=== PATIENT | male | born 1935 | race Caucasian/White ===

== ENCOUNTER 2016-06-25 | Outpatient (CLI) | payer MEDICARE, OTHER | END 2016-06-25 09:22 | disposition short-term general hospital (02) | DX: R07.9 Chest pain, unspecified (principal) | CPT/HCPCS: A0425; A0427 ==

== ENCOUNTER 2016-12-07 22:45 | Outpatient (CLI) | payer MEDICARE, OTHER | END 2016-12-07 22:46 | disposition critical access hospital (66) | LOC: EMS 22:45 | PROVIDERS: ATTEND Surgery | DX: R10.9 Unspecified abdominal pain (principal); Z79.01 Long term (current) use of anticoagulants; W18.39XA Other fall on same level, initial encounter | CPT/HCPCS: A0425; A0429 ==

== ENCOUNTER 2016-12-07 22:55 | Emergency (ER) | payer MEDICARE, OTHER ==
[2016-12-07] MEDS ORDERED: ONDANSETRON 4 MG/2 ML VIAL IVP STA (23:48)
[2016-12-07] MEDS ORDERED: HYDROmorphone 1 MG/ML SYRINGE IVP STA (23:48)
[2016-12-07] MEDS ORDERED: ONDANSETRON 4 MG/2 ML VIAL ONE ×2 (23:52→23:58)
[2016-12-07] MEDS ORDERED: HYDROmorphone 1 MG/ML SYRINGE ONE ×2 (23:52→23:58)
[2016-12-08 00:12] LABS: BASOPHILS # (AUTO) 0.1 10^3/uL (0.0-0.1); BASOPHILS % (AUTO) 0.8 %; EOSINOPHILS # (AUTO) 0.3 10^3/uL (0.0-0.7); EOSINOPHILS % (AUTO) 3.8 %; HCT - HEMATOCRIT 38.7 % (42.0-52.0); HGB - HEMOGLOBIN 12.8 g/dL (14.0-18.0); LYMPHOCYTES # (AUTO) 2.1 10^3/uL (1.5-3.5); LYMPHOCYTES % (AUTO) 25.7 %; MEAN CORPUSCULAR HEMOGLOBIN 29.4 pg (27.0-31.0); MEAN CORPUSCULAR VOLUME 89.1 fL (80.0-94.0); MEAN PLATELET VOLUME 9.4 fL (7.4-11.4); MONOCYTES # (AUTO) 0.9 10^3/uL (0.0-1.0); MONOCYTES % (AUTO) 11.5 %; NEUTROPHILS # (AUTO) 4.8 10^3/uL (1.5-6.6); NEUTROPHILS % (AUTO) 58.2 %; NUCLEATED RED BLOOD CELLS AUTO 0.1 /100WBC; RED BLOOD COUNT 4.34 10^6/uL (4.70-6.10); RED CELL DISTRIBUTION WIDTH 15.2 % (12.0-15.0); UNCORRECTED WHITE BLOOD COUNT 8.3 x10^3/uL; WHITE BLOOD COUNT 8.3 x10^3/uL (4.8-10.8)
[2016-12-08 00:21] LABS: INR 2.7 (0.8-1.2); PT - PROTHROMBIN TIME 30.3 secs (9.9-12.6)
[2016-12-08 00:27] LABS: ALBUMIN/GLOBULIN RATIO 1.5 (1.0-2.2); BILIRUBIN,TOTAL 0.4 mg/dL (0.2-1.0); CALCIUM 8.6 mg/dL (8.5-10.3); CREATININE 1.3 mg/dL (0.6-1.2); POTASSIUM 4.3 mmol/L (3.5-5.0); TOTAL PROTEIN 5.8 g/dL (6.7-8.2)
--- NOTE | 2016-12-08 01:01 | CT Report ---
EXAM: CT ABDOMEN AND PELVIS EXAM DATE: 12/08/2016 12:33 AM. CLINICAL HISTORY: Right rib pain post fall but also llq pain hx recu. COMPARISONS: 10/26/2012 CT. TECHNIQUE: Routine helical CT imaging was performed through the abdomen and pelvis. IV contrast: No. Enteric contrast: No. Reconstructions: Coronal and sagittal. In accordance with CT protocol optimization, one or more of the following dose reduction techniques w ere utilized for this exam: automated exposure control, adjustment of mA and/or KV based on patient s ize, or use of iterative reconstructive technique. FINDINGS: Lung Bases: Unremarkable. Liver: There is an 8.8 x 7.5 cm cyst within the right hepatic lobe, previously 5.4 x 6.4 cm. A smalle r 2 cm cyst with lobulated margins is seen at the inferior aspect of the left hepatic lobe. Further c haracterization of the cyst limited without IV contrast. Gallbladder/Bile Ducts: The gallbladder has been removed. No bile duct dilatation. Spleen: Normal. Pancreas: Normal. Adrenal Glands: Normal. Kidneys: Normal. No masses or hydronephrosis. Peritoneal Cavity/Bowel: Normal. No free fluid, free air or adenopathy. No masses or acute inflammato ry process. Diverticulosis, no diverticulitis or appendicitis. Pelvic Organs: Normal. The bladder and visualized pelvic organs are within normal limits. Vasculature: No aneurysms or other significant abnormality. Bones: Nondisplaced right lateral seventh rib fracture. No other acute skeletal findings. Other: None. IMPRESSION: 1. Nondisplaced right lateral seventh rib fracture. 2. Allowing for limitations of noncontrast CT technique, no obvious acute solid or hollow abdominal v isceral trauma. 3. Diverticulosis. No diverticulitis or other acute inflammatory process. 4. Interval increase in size of now 8.8 cm right hepatic lobe cyst. [facility] Referring Provider Line: [phone] SITE ID: [id number]
--- NOTE | 2016-12-08 01:02 | CT Preliminary Report ---
Exam: CT Chest W/O IMPRESSION: 1. Nondisplaced right lateral sixth and seventh rib fractures. 2. No acute pulmonary process. [facility] SITE ID: [id number]
--- NOTE | 2016-12-08 01:04 | CT Report ---
EXAM: CT CHEST EXAM DATE: 12/08/2016 12:32 AM. CLINICAL HISTORY: Right costal margin pain/fall. COMPARISONS: None. TECHNIQUE: Routine helical CT imaging was performed through the chest. IV contrast: None. Reconstruct ions: Coronal and sagittal. In accordance with CT protocol optimization, one or more of the following dose reduction techniques w ere utilized for this exam: automated exposure control, adjustment of mA and/or KV based on patient s ize, or use of iterative reconstructive technique. FINDINGS: Lungs/Pleura: No nodules, bronchial thickening, consolidation, or edema. Pulmonary vasculature is nor mal. No pericardial or pleural effusion. No pneumothorax. Mediastinum: Normal. No adenopathy or masses. The heart and great vessels are normal. Bones: Nondisplaced right lateral sixth and seventh rib fractures. Visualized Abdomen: There is an 8.8 cm right hepatic lobe cyst. Other: None. IMPRESSION: 1. Nondisplaced right lateral sixth and seventh rib fractures. 2. No acute pulmonary process. [facility] Referring Provider Line: [phone] SITE ID: [id number]
[2016-12-08 01:19] LABS: BILIRUBIN,URINE NEGATIVE (NEGATIVE)
[2016-12-08 01:21] LABS: UA CHARGE (STRIP ONLY) YES; UR CULTURE IF IND NOT INDICATED
[2016-12-08] MEDS ORDERED: HYDROmorphone 1 MG/ML SYRINGE IVP STA (01:30)
[2016-12-08] MEDS ORDERED: HYDROmorphone 1 MG/ML SYRINGE ONE (01:37)
[2016-12-08] MEDS ORDERED: oxyCODONE/ACET 5/325 Prepack 4 PO STA (02:04)
--- NOTE | 2016-12-08 02:04 | ED Physician Documentation ---
History of Present Illness - Stated complaint Stated Complaint: FELL, RIGHT FLANK PAIN WITH INSPIRATION - Chief complaint Chief Complaint: Abd Pain - History obtained from History obtained from: Patient, Family - Additonal information Additional information: Patient is a pleasant 81-year-old man who was pulling on a post, had the post snap, and subsequently fell to the ground hitting his right lateral chest wall. He had immediate onset of pain in the right side. The pain would come and go occasionally sometimes with deep breathing and sometimes with palpation. He never developed any shortness of breath but the pain was severe so he presented to the [facility] with right lateral chest pain. He denies any head neck or abdominal injury. This patient does have a history of atrial fibrillation and factor V Leiden deficiency. He is on Coumadin chronically and also has a history of chronic kidney disease as well as diverticulosis of the colon. His last INR check was several weeks ago and he says it is difficult to control. Review of systems: For pertinent positive and negatives in the review of systems please see history of present illness. Otherwise all other systems have been reviewed and are negative. Dragon disclaimer: Parts of this medical record were created using voice recognition technology. Because of the inherent limitations of this system occasional same sounding word substitutions do occur and persist despite proofreading. Please read the document for context. Review of Systems Ten Systems: 10 systems reviewed and negative Constitutional: denies: Fever, Chills, Myalgias Eyes: reports: Loss of vision Ears: reports: Loss of hearing Nose: reports: Rhinorrhea / runny nose, Foreign Body Throat: reports: Dental pain / toothache, Oral lesions / sores Cardiac: reports: Chest pain / pressure. denies: Palpitations, Pedal edema, Calf pain Respiratory: denies: Dyspnea, Cough GI: denies: Abdominal Pain, Abdominal Swelling, Nausea, Vomiting : denies: Dysuria, Frequency, Hesitancy Musculoskeletal: denies: Neck pain, Back pain PD PAST MEDICAL HISTORY - Past Medical History Cardiovascular: Hypertension, High cholesterol, Atrial fibrillation - Past Surgical History Past Surgical History: Yes General: Cholecystectomy, Appendectomy Ortho: Knee replacement HEENT: Tonsil/Adenoidectomy - Present Medications Home Medications: Ambulatory Orders Medication Instructions Recorded Confirmed Cholecalciferol (Vitamin D3) 2,000 unit PO DAILY 12/10/12 04/17/15 [Vitamin D] Dronedarone HCl [Multaq] 400 mg PO BID 12/10/12 04/17/15 Multivitamin [Multivitamins] 1 each PO DAILY 12/10/12 04/17/15 Ubidecarenone [Coenzyme Q10] 200 mg PO DAILY 12/10/12 04/17/15 Warfarin [Coumadin] 5 mg PO SUMOWEFR 12/10/12 04/17/15 Albuterol [Ventolin Hfa] 2 puffs INH Q6H PRN 04/14/15 04/17/15 Aspirin [Aspir 81] 81 mg PO DAILY 04/14/15 04/17/15 Docusate Sodium [Colace Clear] 100 mg PO BID 04/14/15 04/17/15 Finasteride [Propecia] 1 mg PO DAILY 04/14/15 04/17/15 Fluticasone [Flonase] 2 sprays VENTURA DAILY 04/14/15 04/17/15 Magnesium Oxide [Mag Ox] 400 mg PO DAILY 04/14/15 04/17/15 Methylcellulose [Citrucel] 500 mg PO BID 04/14/15 04/17/15 Metoclopramide HCl [Reglan] 5 mg PO Q6H PRN #15 tablet 04/14/15 04/17/15 Omeprazole [Prilosec] 40 mg PO DAILY 04/14/15 04/17/15 Oxycodone HCl/Acetaminophen 1 each PO Q6H PRN #20 tablet 04/14/15 04/17/15 [Percocet 5-325 mg Tablet] Pitavastatin Calcium [Livalo] 0.5 mg PO DAILY 04/14/15 04/17/15 Telmisartan [Micardis] 20 mg PO DAILY 04/14/15 04/17/15 Warfarin [Coumadin] 2.5 mg PO TUTHSA 04/17/15 04/17/15 Tramadol HCl 50 mg PO Q8HR PRN #20 tablet 12/08/16 - Allergies Allergies/Adverse Reactions: Allergies Allergy/AdvReac Type Severity Reaction Status Date / Time iodine Allergy Unknown Verified 04/16/15 18:02 Penicillins Allergy Rash Verified 12/10/12 14:09 [place]-Jht-Mfr Reductase Allergy Unknown Verified 04/16/15 18:02 Inhibitor Sulfa (Sulfonamide Allergy Rash Verified 12/10/12 14:09 Antibiotics) - Social History Does the pt smoke?: No Smoking Status: Never smoker Does the pt drink ETOH?: No Does the pt have substance abuse?: No PD ED PE NORMAL - Vitals Vital signs reviewed: Yes - General General: Alert and oriented X 3, Well developed/nourished, Other (Mild distress secondary to right rib pain) - HEENT HEENT: Atraumatic - Cardiac Cardiac: No murmur, No gallop - Respiratory Respiratory: No respiratory distress, Clear bilaterally, Other (Tender without any obvious crepitance to right lateral chest wall) - Derm Derm: Normal color, Warm and dry - Extremities Extremities: No deformity, No tenderness to palpate - Neuro Neuro: Alert and oriented X 3, registered nurse hh case manager 2-12 intact Results - Vitals Vitals: Vital Signs - 24 hr 12/07/16 12/08/16 23:00 00:41 Temperature 36.4 C L Heart Rate 54 L 45 L Respiratory 14 18 Rate Blood Pressure 129/76 111/59 L O2 Saturation 99 99 Oxygen O2 Source Room air - Labs Labs: Laboratory Tests 12/08/16 12/08/16 12/08/16 00:01 00:01 00:01 WBC 8.3 RBC 4.34 L Hgb 12.8 L Hct 38.7 L MCV 89.1 MCH 29.4 MCHC 33.0 RDW 15.2 H Plt Count 163 MPV 9.4 Neut # 4.8 Lymph # 2.1 [place] # 0.9 Eos # 0.3 Baso # 0.1 Absolute Nucleated RBC 0.01 Nucleated RBCs 0.1 PT 30.3 H INR 2.7 H Sodium 141 Potassium 4.3 Chloride 110 Carbon Dioxide 26 Anion Gap 5.0 L BUN 22 H Creatinine 1.3 H Estimated GFR (MDRD) 53 L Glucose 103 H Calcium 8.6 Total Bilirubin 0.4 AST 20 ALT 19 Alkaline Phosphatase 65 Total Protein 5.8 L Albumin 3.5 Globulin 2.3 Albumin/Globulin Ratio 1.5 Lipase 29 Urine Color Urine Clarity Urine pH Ur Specific [place] Urine Protein Urine Glucose (UA) Urine Ketones Urine Occult Blood Urine Nitrite Urine Bilirubin Urine Urobilinogen Ur Leukocyte Esterase Ur Microscopic Review Urine Culture Comments 12/08/16 01:13 WBC RBC Hgb Hct MCV MCH MCHC RDW Plt Count MPV Neut # Lymph # [place] # Eos # Baso # Absolute Nucleated RBC Nucleated RBCs PT INR Sodium Potassium Chloride Carbon Dioxide Anion Gap BUN Creatinine Estimated GFR (MDRD) Glucose Calcium Total Bilirubin AST ALT Alkaline Phosphatase Total Protein Albumin Globulin Albumin/Globulin Ratio Lipase Urine Color YELLOW Urine Clarity CLEAR Urine pH 7.0 Ur Specific [place] 1.015 Urine Protein NEGATIVE Urine Glucose (UA) NEGATIVE Urine Ketones TRACE Urine Occult Blood NEGATIVE Urine Nitrite NEGATIVE Urine Bilirubin NEGATIVE Urine Urobilinogen 1 (NORMAL) Ur Leukocyte Esterase NEGATIVE Ur Microscopic Review NOT INDICATED Urine Culture Comments NOT INDICATED PD MEDICAL DECISION MAKING - ED course ED course: Patient is a pleasant 81-year-old man who presents after having a trip and fall earlier today. Complains of right lateral rib pain worse with palpation, movement and deep breathing. On examination he has tenderness in the right lateral costal margin. His abdomen appears benign. Because his INR is been difficult to control because the injury we went ahead and check the INR and it is 2.7. There is also question of some worse left lower quadrant pain and a history of recurrent or diverticulitis so a CT scan of the chest abdomen pelvis was done without contrast. The CT scan demonstrates a fracture of the sixth and seventh rib without any evidence of pulmonary injury. The patient's diverticulosis is quite innocent. Routine labs demonstrated normal INR and chronic kidney disease. He has a GFR of 53 and believes it was 51 last time. There is no evidence of kidney injury or hematuria. He was given several doses of pain medication here, and incentive spirometer, and will be sent home with narcotic analgesia with recommendations to take Tylenol,And her tramadol and also to practice deep breathing exercises with incentive spirometer as well as follow-up with his physician a couple days and watch for any concerning worsening in pulmonary function. Disposition: To home Clinical impression: 1. Right sided rib fracture of rib #6 and 7 without evidence of pulmonary contusion or pneumothorax 2. Stable diverticulosis of the sigmoid colon Departure - Departure Disposition: 01 Home, Self Care Clinical Impression: Rib fracture Qualifiers: Encounter type: initial encounter Rib fracture type: multiple ribs Fracture type: closed Laterality: right Qualified Code(s): S22.41XA - Multiple fractures of ribs, right side, initial encounter for closed fracture Condition: Good Instructions: ED Fx Rib Follow-Up: Thom Watson MD [Primary Care Provider] - Prescriptions: Tramadol HCl 50 mg PO Q8HR PRN #20 tablet PRN Reason: Pain
[2016-12-08] MEDS ORDERED: oxyCODONE/ACET 5/325 Prepack 4 PO ONE (02:05)
[2016-12-08 02:24] VITALS: BP 115/58
== END 2016-12-08 02:23 | disposition home or self-care (01) ==
LOC: EDUNIT# → SUPCPDRO 22:55 → ED 22:55
DX: S22.41XA Multiple fractures of ribs, right side, initial encounter for closed fracture (principal); W22.09XA Striking against other stationary object, initial encounter; W17.89XA Other fall from one level to another, initial encounter; Y93.89 Activity, other specified; I48.91 Unspecified atrial fibrillation; I10 Essential (primary) hypertension; Z79.01 Long term (current) use of anticoagulants; Z96.659 Presence of unspecified artificial knee joint; Z79.82 Long term (current) use of aspirin
CPT/HCPCS: 36415; 71250; 74176; 80053; 81003; 83690; 85025; 85610; 96374; 96375; 96376; 99284; J1170; 81001; 87086

== ENCOUNTER 2017-03-08 16:18 | Emergency (ER) | payer MEDICARE, OTHER ==
--- NOTE | 2017-03-08 17:52 | ED Physician Documentation ---
PD HPI LOWER EXT INJURY - Stated complaint Stated Complaint: RT KNEE PX - Chief complaint Chief Complaint: Ext Problem - History obtained from History obtained from: Patient - History of Present Illness PD HPI LOW EXT INJURY LOCATION: Other (82-year-old gentleman on warfarin was at his doctor's office today where he was sitting on the couch in a funny position and on getting up his knee was swollen he could not walk. His pro time earlier today by fingerstick was 3.7 on on formal blood draw was 3.0.) Review of Systems Constitutional: reports: Reviewed and negative Cardiac: reports: Reviewed and negative Respiratory: reports: Reviewed and negative GI: reports: Reviewed and negative PD PAST MEDICAL HISTORY - Past Medical History Past Medical History: Yes Cardiovascular: Hypertension, High cholesterol, Atrial fibrillation - Past Surgical History Past Surgical History: Yes General: Cholecystectomy, Appendectomy Ortho: Knee replacement HEENT: Cataracts, Tonsil/Adenoidectomy - Present Medications Home Medications: Ambulatory Orders Medication Instructions Recorded Confirmed Dronedarone HCl [Multaq] 400 mg PO BID 12/10/12 04/17/15 Warfarin [Coumadin] 5 mg PO DAILY 12/10/12 03/08/17 Albuterol [Ventolin Hfa] 2 puffs INH Q6H PRN 04/14/15 04/17/15 Methylcellulose [Citrucel] 500 mg PO BID 04/14/15 04/17/15 Pitavastatin Calcium [Livalo] 1 mg PO DAILY 04/14/15 04/17/15 Warfarin [Coumadin] 2.5 mg PO DAILY 04/17/15 04/17/15 HYDROcod/ACETAM 5/325 [[place] 5/325] 1 - 2 ea PO Q6H PRN #15 tablet 03/08/17 Promethazine [Phenergan] 25 - 50 mg PO Q6H PRN #15 tab 03/08/17 - Allergies Allergies/Adverse Reactions: Allergies Allergy/AdvReac Type Severity Reaction Status Date / Time iodine Allergy Unknown Verified 03/08/17 16:44 Penicillins Allergy Rash Verified 03/08/17 16:44 Zjeqsoc-Yku-Uxr Reductase Allergy Unknown Verified 03/08/17 16:44 Inhibitor Sulfa (Sulfonamide Allergy Rash Verified 03/08/17 16:44 Antibiotics) - Social History Does the pt smoke?: No Smoking Status: Never smoker Does the pt drink ETOH?: No Does the pt have substance abuse?: No - Immunizations Immunizations are current?: Yes PD ED PE NORMAL - Vitals Vital signs reviewed: Yes - General General: Alert and oriented X 3, No acute distress - Extremities Extremities: Other (There is a moderate effusion of the right knee and he is unable to flex it but he can straighten it. There is suprapatellar tenderness and fullness, no calf tenderness or fullness.) - Neuro Neuro: Alert and oriented X 3, Normal speech - Psych Psych: Normal mood, Normal affect Results - Vitals Vitals: Vital Signs - 24 hr 03/08/17 03/08/17 16:37 20:14 Temperature 36.1 C L 36.6 C Heart Rate 72 67 Respiratory 16 18 Rate Blood Pressure 124/80 129/80 O2 Saturation 100 99 Oxygen O2 Source Room air - Rads (name of study) Right lower extremity DVT scan Radiology: EMP read contemporaneously X-ray of the right knee Radiology: EMP read contemporaneously (Large effusion, no other issue.) PD MEDICAL DECISION MAKING - ED course ED course: 82-year-old gentleman on warfarin with an INR earlier today 3.0 presents with a large knee effusion, atraumatic. He was specifically concerned for DVT which is negative on ultrasound. He was administered a Vicodin here which made him nauseous, Zofran, some Zofran to go home with but will place him on Phenergan to decrease QTc issues as he is on any anti-emetic. Conservative care with ice and wrapping was recommended. He declined overnight stay for potential snf placement in the morning. Departure - Departure Disposition: 01 Home, Self Care Clinical Impression: Anticoagulation adequate, Effusion, right knee Pain of lower extremity Qualifiers: Laterality: right Qualified Code(s): M79.604 - Pain in right leg Condition: Good Record reviewed to determine appropriate education?: Yes Instructions: ED Effusion Knee Prescriptions: HYDROcod/ACETAM 5/325 [[place] 5/325] 1 - 2 ea PO Q6H PRN #15 tablet PRN Reason: Pain Promethazine [Phenergan] 25 - 50 mg PO Q6H PRN #15 tab PRN Reason: Nausea / Vomiting Comments: Follow-up with your physician in 1 week, you may walk and bear weight as tolerated. Recheck your INR in a few days. Return if worse. Discharge Date/Time: 03/08/17 20:27
[2017-03-08] MEDS ORDERED: HYDROcod/ACETAM 5/325 MG TABLET ONE ×2 (18:54→19:20)
--- NOTE | 2017-03-08 18:56 | XRAY Preliminary Report ---
Exam: XR KNEE 3 VIEW RT IMPRESSION: 1. Large knee joint effusion. Normal alignment. 2. No fracture. [facility] SITE ID: [id number]
[2017-03-08] MEDS: HYDROcod/ACETAM 5/325 MG TABLET PO STA (19:19)
--- NOTE | 2017-03-08 19:26 | Ultrasound Preliminary Report ---
Exam: US DUPLEX VENOUS LIMITED IMPRESSION: No evidence for deep venous thrombosis. [facility] SITE ID: [id number]
--- NOTE | 2017-03-08 19:26 | XRAY Report ---
EXAM: RIGHT KNEE RADIOGRAPHY EXAM DATE: 03/08/2017 06:25 PM. CLINICAL HISTORY: Knee pain. COMPARISON: 04/14/2015. TECHNIQUE: 3 views. FINDINGS: Bones: Normal. No fractures or bone lesions. Joints: Large right knee joint effusion. Normal alignment. Small osteophytes are seen in all three co mpartments of the right knee. Soft Tissues: Normal. No soft tissue swelling. IMPRESSION: 1. Large knee joint effusion. Normal alignment. 2. No fracture. [facility] Referring Provider Line: [phone] SITE ID: [id number]
--- NOTE | 2017-03-08 19:29 | Ultrasound Report ---
EXAM: RIGHT LOWER EXTREMITY VENOUS ULTRASOUND EXAM DATE: 03/08/2017 07:12 PM. CLINICAL HISTORY: Leg pain. COMPARISON: None. TECHNIQUE: Real-time sonographic vascular imaging was performed by the energy efficiency engineer through the lower extremity utilizing both color-flow and Doppler spectral analysis. Multiple brand representative static nikolas ges were saved for review. FINDINGS: Common Femoral Vein (CFV): Normal. CFV-GSV Junction: Normal. Profunda Femoral Vein (PFV): Normal. Femoral Vein (FV) Prox: Normal. Femoral Vein (FV) Mid: Normal. Femoral Vein (FV) Dist: Normal. Popliteal Vein: Normal. Posterior Tibial Veins: Normal. Peroneal Veins: Normal. Other: None. IMPRESSION: No evidence for deep venous thrombosis. [facility] Referring Provider Line: [phone] SITE ID: [id number]
[2017-03-08] MEDS ORDERED: ONDANSETRON ODT 4 MG Prepack 2 TL ONE (19:51)
[2017-03-08] MEDS ORDERED: ONDANSETRON ODT 4 MG TABLET ONE (19:51)
[2017-03-08] MEDS ORDERED: HYDROcod/ACET 5/325 Prepack 6 PO ONE (19:51)
[2017-03-08] MEDS: ONDANSETRON ODT 4 MG TABLET TL STA (19:51)
[2017-03-08] MEDS: ONDANSETRON ODT 4 MG Prepack 2 TL STA (19:52)
[2017-03-08] MEDS: HYDROcod/ACET 5/325 Prepack 6 PO STA (19:52)
[2017-03-08 20:15] VITALS: BP 129/80
== END 2017-03-08 20:27 | disposition home or self-care (01) ==
LOC: ED 16:18
DX: M25.461 Effusion, right knee (principal); M79.604 Pain in right leg; I10 Essential (primary) hypertension; E78.00 Pure hypercholesterolemia, unspecified; I48.91 Unspecified atrial fibrillation; Z79.01 Long term (current) use of anticoagulants; Z96.659 Presence of unspecified artificial knee joint
CPT/HCPCS: 85610; 93971; 99283; 99284

== ENCOUNTER 2017-03-12 12:09 | Outpatient (CLI) | payer MEDICARE, OTHER | END 2017-03-12 12:10 | disposition critical access hospital (66) | LOC: EMS 12:09 | PROVIDERS: ATTEND Surgery | DX: M25.561 Pain in right knee (principal) | CPT/HCPCS: A0425; A0429 ==

== ENCOUNTER 2017-03-12 12:19 | Emergency (ER) | payer MEDICARE, OTHER ==
--- NOTE | 2017-03-12 13:10 | ED Physician Documentation ---
PD HPI LOWER EXT INJURY - Stated complaint Stated Complaint: RIGHT KNEE PAIN - Chief complaint Chief Complaint: Ext Problem - History obtained from History obtained from: Patient - History of Present Illness PD HPI LOW EXT INJURY LOCATION: Right, Knee Type of injury: Other (no known injury) Timing - onset: How many days ago (3) Timing - duration: Days (3) Timing - details: Gradual onset Pain level max: 10 Pain level now: 10 Improved by: Rest Worsened by: Moving, Palpating Associated symptoms: Swelling. No: Weakness, Numbness, Tingling Contributing factors: Anticoagulated (warfarin for factor v leiden). No: Prior ortho surgery, Prosthetic joint Similar symptoms before: Diagnosis (joint effusion) Recently seen: Emergency Dept (3 days ago for same.) - Additional information Additional information: R knee xray with joint effusion 3 days ago. Normal duplex US 3 days ago. Review of Systems Ten Systems: 10 systems reviewed and negative Constitutional: reports: Fever (100.5 today). denies: Chills Nose: denies: Rhinorrhea / runny nose, Congestion Throat: denies: Sore throat Cardiac: denies: Chest pain / pressure Respiratory: denies: Cough GI: denies: Abdominal Pain, Nausea, Vomiting, Diarrhea Skin: denies: Rash Musculoskeletal: denies: Neck pain, Back pain Neurologic: denies: Focal weakness, Numbness, Headache PD PAST MEDICAL HISTORY - Past Medical History Cardiovascular: Hypertension, High cholesterol, Atrial fibrillation - Past Surgical History Past Surgical History: Yes General: Cholecystectomy, Appendectomy Ortho: Knee replacement HEENT: Cataracts, Tonsil/Adenoidectomy - Present Medications Home Medications: Ambulatory Orders Medication Instructions Recorded Confirmed Dronedarone HCl [Multaq] 400 mg PO BID 12/10/12 04/17/15 Warfarin [Coumadin] 5 mg PO DAILY 12/10/12 03/08/17 Albuterol [Ventolin Hfa] 2 puffs INH Q6H PRN 04/14/15 04/17/15 Methylcellulose [Citrucel] 500 mg PO BID 04/14/15 04/17/15 Pitavastatin Calcium [Livalo] 1 mg PO DAILY 04/14/15 04/17/15 Warfarin [Coumadin] 2.5 mg PO DAILY 04/17/15 04/17/15 HYDROcod/ACETAM 5/325 [[place] 5/325] 1 - 2 ea PO Q6H PRN #15 tablet 03/08/17 Promethazine [Phenergan] 25 - 50 mg PO Q6H PRN #15 tab 03/08/17 Oxycodone HCl/Acetaminophen 1 each PO Q3HR PRN #20 tablet 03/12/17 [Percocet 5-325 mg Tablet] - Allergies Allergies/Adverse Reactions: Allergies Allergy/AdvReac Type Severity Reaction Status Date / Time iodine Allergy Unknown Verified 03/08/17 16:44 Penicillins Allergy Rash Verified 03/08/17 16:44 Dhenmlo-Ahe-Iho Reductase Allergy Unknown Verified 03/08/17 16:44 Inhibitor Sulfa (Sulfonamide Allergy Rash Verified 03/08/17 16:44 Antibiotics) - Social History Does the pt smoke?: No Smoking Status: Never smoker Does the pt drink ETOH?: No Does the pt have substance abuse?: No - Immunizations Immunizations are current?: Yes PD ED PE NORMAL - Vitals Vital signs reviewed: Yes - General General: Alert and oriented X 3, No acute distress - HEENT HEENT: Moist mucous membranes - Neck Neck: Supple, no meningeal sign - Cardiac Cardiac: RRR - Respiratory Respiratory: No respiratory distress, Clear bilaterally - Abdomen Abdomen: Soft, Non tender - Derm Derm: Warm and dry - Extremities Extremities: Other (R knee - swollen, tender, warm knee. normal skin color. Very limited ROM 2/2 pain.) - Neuro Neuro: Alert and oriented X 3 - Psych Psych: Normal mood, Normal affect Results - Vitals Vitals: Vital Signs - 24 hr 03/12/17 03/12/17 03/12/17 12:21 15:26 17:49 Temperature 36.5 C 37.3 C Heart Rate 66 76 Respiratory 20 16 Rate Blood Pressure 109/70 110/66 O2 Saturation 97 97 96 03/12/17 03/12/17 18:18 19:29 Temperature 36.4 C L Heart Rate 80 Respiratory 16 15 Rate Blood Pressure 118/67 O2 Saturation 93 97 Oxygen O2 Source Room air - Labs Labs: Microbiology 03/12/17 14:42 Body Fluid Culture - Preliminary Other - Unknown Specimen Description Laboratory Tests 03/12/17 03/12/17 03/12/17 13:40 13:40 13:40 WBC 15.3 H RBC 5.14 Hgb 14.7 Hct 44.9 MCV 87.3 MCH 28.6 MCHC 32.8 RDW 15.2 H Plt Count 187 MPV 9.3 Neut # 12.0 H Lymph # 1.4 L [place] # 1.8 H Eos # 0.0 Baso # 0.1 Absolute Nucleated RBC 0.00 Nucleated RBC % 0.0 Manual Slide Review Indicated WBC Morphology NORMAL APPEARANCE Platelet Estimate NORMAL (130-450,000) Platelet Morphology NORMAL APPEARANCE RBC Morph Micro Appear 1+ OVALOCYTES ESR 15 PT 51.5 H INR 4.5 H* Sodium Potassium Chloride Carbon Dioxide Anion Gap BUN Creatinine Estimated GFR (MDRD) Glucose Calcium Total Bilirubin AST ALT Alkaline Phosphatase C-Reactive Protein Total Protein Albumin Globulin Albumin/Globulin Ratio Lipase Fluid Source Fluid Color Fluid Clarity Fluid WBC Fluid RBC Fluid Neutrophils % Fluid Lymphocytes % Fluid Monocytes % Fluid Crystals 03/12/17 03/12/17 03/12/17 13:40 14:42 14:42 WBC RBC Hgb Hct MCV MCH MCHC RDW Plt Count MPV Neut # Lymph # [place] # Eos # Baso # Absolute Nucleated RBC Nucleated RBC % Manual Slide Review WBC Morphology Platelet Estimate Platelet Morphology RBC Morph Micro Appear ESR PT INR Sodium 136 Potassium 4.0 Chloride 98 L Carbon Dioxide 26 Anion Gap 9.0 BUN 14 Creatinine 1.1 Estimated GFR (MDRD) 64 L Glucose 108 H Calcium 9.0 Total Bilirubin 1.2 H AST 20 ALT 21 Alkaline Phosphatase 70 C-Reactive Protein 19.7 H Total Protein 6.9 Albumin 3.8 Globulin 3.2 Albumin/Globulin Ratio 1.2 Lipase 17 L Fluid Source R KNEE Fluid Color RED Fluid Clarity BLOODY Fluid WBC QUALITY CONTROL ASSESSOR Fluid RBC QUALITY CONTROL ASSESSOR Fluid Neutrophils % 91 Fluid Lymphocytes % 7 Fluid Monocytes % 2 Fluid Crystals NONE SEEN PD MEDICAL DECISION MAKING - ED course Complexity details: reviewed old records, reviewed results, re-evaluated patient , considered differential, d/w patient, d/w family, d/w pension consultant ED course: Patient is an 82-year-old male who presents to the emergency department with worsening right knee pain. His INR is supratherapeutic and will hold his warfarin for the next 2 days. Concern for possible infected joint, therefore contacted Dr. Christianson, orthopedics who came and evaluated the patient. Performed a arthrocentesis and this was sent to the lab. Dr. Christianson does not feel that this represents an infected joint, recommends we place him in a splint, pain medication and follow-up next week. Pain well controlled here. Patient and his were interested in respite care [facility], I attempted to have his primary care provider write orders, Dr. Anderson was personnel administrator and said he would provide orders. While awaiting for the orders to be written, the patient and his stated they were just tired and wanted to go home. They said they will return if he worsens. Patient and family counseled regarding signs and symptoms for which I believe and urgent re-evaluation would be necessary. Patient with good understanding of and agreement to plan and is comfortable going home at this time This document was made in part using voice recognition software. While efforts are made to proofread this document, sound alike and grammatical errors may occur. Departure - Departure Disposition: 01 Home, Self Care Clinical Impression: Hemarthrosis Condition: Good Instructions: ED Effusion Knee Follow-Up: [facility] [Provider Group] - Within 3 Days (call for appointment) Prescriptions: Oxycodone HCl/Acetaminophen [Percocet 5-325 mg Tablet] 1 each PO Q3HR PRN #20 tablet PRN Reason: pain Comments: Stop the warfarin for the next 3 days. Have your INR rechecked on Wednesday or Wednesday. Return if you worsen. Do not drink alcohol or drive while on narcotic pain medicine. Note that many narcotic pain relievers also contain tylenol/acetaminophen. Please ensure that your total dose of acetaminophen from all sources does not exceed 3 grams (3000mg) per day. You may constipated on this medication, take a stool softener such as "Colace" twice a day while you are on it. Also recommend a lcca-rqy-[id number] laxative such as senna or MiraLAX any day that you do not have a bowel movement. If you received narcotic pain medication in the emergency department, do not drive or operate machinery for the next 24 hours. Discharge Date/Time: 03/12/17 19:30
[2017-03-12] MEDS ORDERED: HYDROmorphone 1 MG/ML SYRINGE IVP STA ×2 (13:23→16:06)
[2017-03-12] MEDS ORDERED: HYDROmorphone 1 MG/ML SYRINGE ONE ×2 (13:45→17:50)
[2017-03-12 13:51] LABS: BASOPHILS # (AUTO) 0.1 10^3/uL (0.0-0.1); BASOPHILS % (AUTO) 0.5 %; HCT - HEMATOCRIT 44.9 % (42.0-52.0); HGB - HEMOGLOBIN 14.7 g/dL (14.0-18.0); LYMPHOCYTES # (AUTO) 1.4 10^3/uL (1.5-3.5); MEAN CORPUSCULAR HEMOGLOBIN 28.6 pg (27.0-31.0); MEAN CORPUSCULAR HGB CONC 32.8 g/dL (32.0-36.0); MEAN CORPUSCULAR VOLUME 87.3 fL (80.0-94.0); MEAN PLATELET VOLUME 9.3 fL (7.4-11.4); MONOCYTES # (AUTO) 1.8 10^3/uL (0.0-1.0); MONOCYTES % (AUTO) 12.1 %; NEUTROPHILS % (AUTO) 78.4 %; RED BLOOD COUNT 5.14 10^6/uL (4.70-6.10); RED CELL DISTRIBUTION WIDTH 15.2 % (12.0-15.0); UNCORRECTED WHITE BLOOD COUNT 15.3 x10^3/uL; WHITE BLOOD COUNT 15.3 x10^3/uL (4.8-10.8)
[2017-03-12 14:04] LABS: PT - PROTHROMBIN TIME 51.5 secs (9.9-12.6)
[2017-03-12 14:07] LABS: INR 4.5 (0.8-1.2)
[2017-03-12 14:19] LABS: ALBUMIN/GLOBULIN RATIO 1.2 (1.0-2.2)
[2017-03-12 14:26] LABS: PLATELET ESTIMATE, MANUAL NORMAL (130-450,000) (NORMAL); PLATELET MORPHOLOGY NORMAL APPEARANCE (NORMAL)
[2017-03-12 14:27] LABS: WBC MORPHOLOGY (MULTIPLE) NORMAL APPEARANCE (NORMAL)
[2017-03-12 14:46] LABS: BILIRUBIN,TOTAL 1.2 mg/dL (0.2-1.0); CREATININE 1.1 mg/dL (0.6-1.2); TOTAL PROTEIN 6.9 g/dL (6.7-8.2)
--- NOTE | 2017-03-12 15:12 | PROVIDER PROGRESS NOTE ---
Subjective - Prog Note Date Prog Note Date: 03/12/17 Prog Note Time: 15:09 - Subjective Pt reports feeling: Worse (Patient complains of worsening right knee swelling and painful motion x 2-3 days. Atraumatic origin. Is on coumadin for A. fib. Mild temperature while at home. No chills) Objective - Vital Signs/Intake & Output Vital Signs: Vital Signs x48h Temp Pulse Resp BP Pulse Ox 03/12/17 12:21 36.5 C 66 20 109/70 97 - Lab Results Fish Bones: 03/12/17 13:40 03/12/17 13:40 Other Labs: Lab Results x24hrs 03/12/17 03/12/17 03/12/17 Range/Units 13:40 13:40 13:40 WBC (4.8-10.8) x10^3/uL RBC (4.70-6.10) 10^6/uL Hgb (14.0-18.0) g/dL Hct (42.0-52.0) % MCV (80.0-94.0) fL MCH (27.0-31.0) pg MCHC (32.0-36.0) g/dL RDW (12.0-15.0) % Plt Count (130-450) 10^3/uL MPV (7.4-11.4) fL Neut # (1.5-6.6) 10^3/uL Lymph # (1.5-3.5) 10^3/uL [place] # (0.0-1.0) 10^3/uL Eos # (0.0-0.7) 10^3/uL Baso # (0.0-0.1) 10^3/uL Absolute Nucleated RBC x10^3/uL Nucleated RBC % /100WBC Manual Slide Review WBC Morphology (NORMAL) Platelet Estimate (NORMAL) Platelet Morphology (NORMAL) RBC Morph Micro Appear (NORMAL) ESR 15 (0-20) mm/Hr PT 51.5 H (9.9-12.6) secs INR 4.5 H* (0.8-1.2) Sodium 136 (135-145) mmol/L Potassium 4.0 (3.5-5.0) mmol/L Chloride 98 L (101-111) mmol/L Carbon Dioxide 26 (21-32) mmol/L Anion Gap 9.0 (6-13) BUN 14 (6-20) mg/dL Creatinine 1.1 (0.6-1.2) mg/dL Estimated GFR (MDRD) 64 L (>89) Glucose 108 H (70-100) mg/dL Calcium 9.0 (8.5-10.3) mg/dL Total Bilirubin 1.2 H (0.2-1.0) mg/dL AST 20 (10-42) IU/L ALT 21 (10-60) IU/L Alkaline Phosphatase 70 (42-121) IU/L C-Reactive Protein 19.7 H (0-1.0) mg/dL Total Protein 6.9 (6.7-8.2) g/dL Albumin 3.8 (3.2-5.5) g/dL Globulin 3.2 (2.1-4.2) g/dL Albumin/Globulin Ratio 1.2 (1.0-2.2) Lipase 17 L (22-51) U/L 03/12/ Range/Units 13:40 WBC 15.3 H (4.8-10.8) x10^3/uL RBC 5.14 (4.70-6.10) 10^6/uL Hgb 14.7 (14.0-18.0) g/dL Hct 44.9 (42.0-52.0) % MCV 87.3 (80.0-94.0) fL MCH 28.6 (27.0-31.0) pg MCHC 32.8 (32.0-36.0) g/dL RDW 15.2 H (12.0-15.0) % Plt Count 187 (130-450) 10^3/uL MPV 9.3 (7.4-11.4) fL Neut # 12.0 H (1.5-6.6) 10^3/uL Lymph # 1.4 L (1.5-3.5) 10^3/uL [place] # 1.8 H (0.0-1.0) 10^3/uL Eos # 0.0 (0.0-0.7) 10^3/uL Baso # 0.1 (0.0-0.1) 10^3/uL Absolute Nucleated RBC 0.00 x10^3/uL Nucleated RBC % 0.0 /100WBC Manual Slide Review Indicated WBC Morphology NORMAL APPEARANCE (NORMAL) Platelet Estimate NORMAL (130-450,000) (NORMAL) Platelet Morphology NORMAL APPEARANCE (NORMAL) RBC Morph Micro Appear 1+ OVALOCYTES (NORMAL) ESR (0-20) mm/Hr PT (9.9-12.6) secs INR (0.8-1.2) Sodium (135-145) mmol/L Potassium (3.5-5.0) mmol/L Chloride (101-111) mmol/L Carbon Dioxide (21-32) mmol/L Anion Gap (6-13) BUN (6-20) mg/dL Creatinine (0.6-1.2) mg/dL Estimated GFR (MDRD) (>89) Glucose (70-100) mg/dL Calcium (8.5-10.3) mg/dL Total Bilirubin (0.2-1.0) mg/dL AST (10-42) IU/L ALT (10-60) IU/L Alkaline Phosphatase (42-121) IU/L C-Reactive Protein (0-1.0) mg/dL Total Protein (6.7-8.2) g/dL Albumin (3.2-5.5) g/dL Globulin (2.1-4.2) g/dL Albumin/Globulin Ratio (1.0-2.2) Lipase (22-51) U/L - Other Results/Comments Other Results/Comments: EXAM; 2-3+ swelling/effusion of right knee. Mild warmth; no erythema. Painful knee ROM (10 degrees). Ligaments-stable. N/V ok distally Assessment/Plan - Problem List (1) Effusion, right knee Impression: Likely hemarthrosis from over anti-coagulation (INR 4.5). Less likely to be septic. PLAN: Attempted x 2 to aspirate right knee from medial and then lateral parapatellar approach with #18 gauge needle. Obtained about 2.0 ml of grossly bloody clot from knee. Sent to lab for cell count (unable to do due to clot formation), crystal, stat gram stain; aerobic and anaerobic C&S. If hemarthrosis, knee immobilizer, ice, Tylenol, reverse or stop coumadin, if ok with medicine.
--- NOTE | 2017-03-12 16:01 | CONSULTATION NOTE ---
DATE OF CONSULTATION: 03/12/2017 00:00:00 REQUESTING PROVIDER: Ty Pemberton MD of the emergency room department. 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 His knee sym ptoms are atraumatic in origin. Has worsened after his initial evaluation several days ago in the [facility]. Of note is patient is currently being anticoagulated for atrial fibrillation. This has c hronically been done. On this last emergency room visit, his INR was elevated at 3.3. The patient, trino regan, has continued to have increased swelling and discomfort in the knee. Last night, was noted to have low-grade temperature of around 100. No chills noted. He presents to the emergency room now for reevaluation of his knee swelling. PHYSICAL EXAMINATION: On examination, the patient's right knee shows what appears to be a tense effus ion of the right knee. There is mild warmth but no erythema appreciated. Has painful range of motion of knee having about 5-10 degrees of total motion before stopping because of pain. Ligaments appear t o be stable. Neurovascular is intact distally. No lymphangitis appreciated. PLAN: After Betadine skip preparation, an 18-gauge needle was inserted in the knee. This was done twi ce. Once from a medial parapatellar approach then from a lateral parapatellar approach. Minimal fluid was aspirated. Approximately 2 mL of grossly bloody fluid which resembled a clot was obtained from o ur lateral aspiration. This was sent to laboratory for cell count, crystal analysis, and Gram stain. Also, we set up for aerobic, anaerobic cultures and sensitivities. ASSESSMENT: Probable hemarthrosis of the right knee - in part due to his over anticoagulation (INR eq ual 4.5). Interestingly, it appears as if his hemarthrosis may have consolidated and then clotted whi ch is why the aspiration attempts reveals such a minimal amount of fluid. It is less likely this is a ssociated with sepsis. PLAN: The patient will await the evaluation of the fluid that was aspirated. If his Gram stain is neg ative for any occult organisms, would treat this again more likely as a hemarthrosis rather than a se ptic process. Would suggest knee immobilization and ice for comfort. Only Tylenol as needed for any a nalgesia and due to his anticoagulation. Will check with the medical service to see how best to bring his INR down to a more therapeutic level. JOB #: [id number] EXT JOB #:[id number]
[2017-03-12 16:09] LABS: LYMPHOCYTES %,BODY FLUID 7; MONOCYTES %,BODY FLUID 2 %; NEUTROPHILS %, BF 91 %
[2017-03-12 16:10] LABS: BF CLARITY BLOODY; BF COLOR RED
[2017-03-12 19:29] VITALS: BP 118/67
== END 2017-03-12 19:30 | disposition home or self-care (01) ==
LOC: EDUNIT# → ED 12:19
DX: M25.061 Hemarthrosis, right knee (principal); I48.91 Unspecified atrial fibrillation; Z79.01 Long term (current) use of anticoagulants; D68.51 Activated protein C resistance; I10 Essential (primary) hypertension; E78.00 Pure hypercholesterolemia, unspecified
CPT/HCPCS: 20610; 36415; 80053; 83690; 85025; 85610; 85651; 86140; 87070; 87205; 89051; 89060; 96374; 96376; 99284; J1170

== ENCOUNTER 2017-03-18 10:06 | Outpatient (CLI) | payer MEDICARE, OTHER ==
[2017-03-19 09:20] LABS: INR 2.5 (0.8-1.2); PT - PROTHROMBIN TIME 28.4 secs (9.9-12.6)
[2017-03-19 09:38] LABS: BASOPHILS % (AUTO) 0.7 %; EOSINOPHILS % (AUTO) 1.1 %; HCT - HEMATOCRIT 39.1 % (42.0-52.0); HGB - HEMOGLOBIN 12.8 g/dL (14.0-18.0); LYMPHOCYTES % (AUTO) 16.2 %; MEAN CORPUSCULAR HEMOGLOBIN 28.4 pg (27.0-31.0); MEAN CORPUSCULAR HGB CONC 32.7 g/dL (32.0-36.0); MEAN CORPUSCULAR VOLUME 86.9 fL (80.0-94.0); MONOCYTES % (AUTO) 11.4 %; NEUTROPHILS % (AUTO) 70.6 %; RED CELL DISTRIBUTION WIDTH 14.8 % (12.0-15.0)
[2017-03-19 09:58] LABS: ALBUMIN/GLOBULIN RATIO 0.8 (1.0-2.2); BILIRUBIN,TOTAL 1.6 mg/dL (0.2-1.0); POTASSIUM 4.6 mmol/L (3.5-5.0); TOTAL PROTEIN 6.6 g/dL (6.7-8.2); URIC ACID 3.4 mg/dL (2.6-7.2)
[2017-03-19 10:09] LABS: BAND NEUTROPHILS % (MANUAL) 0 %; LYMPHOCYTES % (MANUAL) 21 %; NEUTROPHILS % (MANUAL) 65 %
[2017-03-19 10:10] LABS: EOSINOPHILS % (MANUAL) 3 %; NP AUTO DIFFERENTIAL? YES; NP MAN DIFFERENTIAL? NO
== END 2017-03-18 10:07 | disposition home or self-care (01) ==
LOC: LAB.WCP 10:06
PROVIDERS: ATTEND Family Medicine
DX: M06.9 Rheumatoid arthritis, unspecified (principal); M23.91 Unspecified internal derangement of right knee; D68.59 Other primary thrombophilia; I48.91 Unspecified atrial fibrillation; R30.0 Dysuria
CPT/HCPCS: 36415; 80053; 81001; 84550; 85025; 85610; 85651; 86140; 86430; 87086

== ENCOUNTER 2017-03-19 11:28 | Outpatient (CLI) | payer MEDICARE, OTHER ==
[2017-03-19 13:04] LABS: BILIRUBIN,URINE NEGATIVE (NEGATIVE)
[2017-03-19 13:12] LABS: UR CULTURE IF IND NOT INDICATED; WBC,URINE 0-3 /HPF (0-3)
== END 2017-03-19 11:29 | disposition home or self-care (01) ==
LOC: LAB.WCP 11:28
PROVIDERS: ATTEND Family Medicine
DX: R30.0 Dysuria (principal)
CPT/HCPCS: 81001; 87086

== ENCOUNTER 2017-04-06 14:53 | Outpatient (CLI) | payer MEDICARE, OTHER ==
[2017-04-06 19:00] LABS: BASOPHILS % (AUTO) 0.6 %; EOSINOPHILS # (AUTO) 0.1 10^3/uL (0.0-0.7); EOSINOPHILS % (AUTO) 1.7 %; HCT - HEMATOCRIT 43.4 % (42.0-52.0); LYMPHOCYTES # (AUTO) 2.2 10^3/uL (1.5-3.5); MEAN CORPUSCULAR HEMOGLOBIN 28.3 pg (27.0-31.0); MEAN CORPUSCULAR HGB CONC 32.2 g/dL (32.0-36.0); MEAN PLATELET VOLUME 9.4 fL (7.4-11.4); MONOCYTES # (AUTO) 0.8 10^3/uL (0.0-1.0); MONOCYTES % (AUTO) 10.1 %; NEUTROPHILS # (AUTO) 4.9 10^3/uL (1.5-6.6); NEUTROPHILS % (AUTO) 60.6 %; RED BLOOD COUNT 4.93 10^6/uL (4.70-6.10); RED CELL DISTRIBUTION WIDTH 16.8 % (12.0-15.0); UNCORRECTED WHITE BLOOD COUNT 8.1 x10^3/uL; WHITE BLOOD COUNT 8.1 x10^3/uL (4.8-10.8)
[2017-04-06 19:02] LABS: PT - PROTHROMBIN TIME 47.9 secs (9.9-12.6)
[2017-04-06 19:21] LABS: INR 4.5 (0.8-1.2)
[2017-04-06 19:24] LABS: BUN - BLOOD UREA NITROGEN 14 mg/dL (6-20); CALCIUM 8.6 mg/dL (8.5-10.3); CARBON DIOXIDE - CO2 26 mmol/L (21-32); CHLORIDE 105 mmol/L (101-111); GFR - MDRD 72 (>89); GLUCOSE 86 mg/dL (70-100); POTASSIUM 3.9 mmol/L (3.5-5.0); SODIUM 138 mmol/L (135-145)
== END 2017-04-06 14:54 | disposition home or self-care (01) ==
LOC: LAB.WCP 14:53
PROVIDERS: ATTEND Family Medicine
DX: I48.91 Unspecified atrial fibrillation (principal); M25.061 Hemarthrosis, right knee; D68.59 Other primary thrombophilia; M25.561 Pain in right knee
CPT/HCPCS: 36415; 80048; 85025; 85610; 85651; 86140

== ENCOUNTER 2017-04-08 09:41 | Outpatient (CLI) | payer MEDICARE, OTHER ==
[2017-04-08 10:04] LABS: INR 2.1 (0.8-1.2); PT - PROTHROMBIN TIME 22.9 secs (9.9-12.6)
== END 2017-04-08 09:42 | disposition home or self-care (01) ==
LOC: LAB 09:41
PROVIDERS: ATTEND Family Medicine
DX: I48.91 Unspecified atrial fibrillation (principal)
CPT/HCPCS: 36415; 85610

== ENCOUNTER 2017-04-26 09:27 | Outpatient (CLI) | payer MEDICARE, OTHER ==
[2017-04-26 09:42] LABS: BASOPHILS # (AUTO) 0.1 10^3/uL (0.0-0.1); BASOPHILS % (AUTO) 0.8 %; EOSINOPHILS # (AUTO) 0.2 10^3/uL (0.0-0.7); EOSINOPHILS % (AUTO) 3.4 %; HCT - HEMATOCRIT 43.4 % (42.0-52.0); HGB - HEMOGLOBIN 14.1 g/dL (14.0-18.0); LYMPHOCYTES # (AUTO) 1.7 10^3/uL (1.5-3.5); LYMPHOCYTES % (AUTO) 24.1 %; MEAN CORPUSCULAR HEMOGLOBIN 28.7 pg (27.0-31.0); MEAN CORPUSCULAR HGB CONC 32.6 g/dL (32.0-36.0); MEAN CORPUSCULAR VOLUME 88.1 fL (80.0-94.0); MEAN PLATELET VOLUME 8.3 fL (7.4-11.4); MONOCYTES # (AUTO) 0.7 10^3/uL (0.0-1.0); MONOCYTES % (AUTO) 10.2 %; NEUTROPHILS # (AUTO) 4.3 10^3/uL (1.5-6.6); NEUTROPHILS % (AUTO) 61.5 %; RED BLOOD COUNT 4.92 10^6/uL (4.70-6.10); RED CELL DISTRIBUTION WIDTH 16.9 % (12.0-15.0)
[2017-04-26 09:56] LABS: ALBUMIN/GLOBULIN RATIO 1.6 (1.0-2.2); BILIRUBIN,TOTAL 0.6 mg/dL (0.2-1.0); CALCIUM 9.2 mg/dL (8.5-10.3); CREATININE 1.1 mg/dL (0.6-1.2); POTASSIUM 4.2 mmol/L (3.5-5.0); TOTAL PROTEIN 6.5 g/dL (6.7-8.2)
== END 2017-04-26 09:28 | disposition home or self-care (01) ==
LOC: LAB 09:27
PROVIDERS: ATTEND Internal Medicine Cardiovascular Disease
DX: I48.91 Unspecified atrial fibrillation (principal)
CPT/HCPCS: 36415; 80053; 85025

== ENCOUNTER 2017-08-16 07:53 | Outpatient (CLI) | payer MEDICARE, OTHER ==
[2017-08-16 08:39] LABS: ALBUMIN 3.9 g/dL (3.2-5.5); ALBUMIN/GLOBULIN RATIO 1.6 (1.0-2.2); BILIRUBIN,TOTAL 0.6 mg/dL (0.2-1.0); CALCIUM 8.7 mg/dL (8.5-10.3); CREATININE 1.2 mg/dL (0.6-1.2); TOTAL PROTEIN 6.3 g/dL (6.7-8.2)
== END 2017-08-16 07:54 | disposition home or self-care (01) ==
LOC: LAB 07:53
PROVIDERS: ATTEND Internal Medicine Cardiovascular Disease
DX: E78.00 Pure hypercholesterolemia, unspecified (principal)
CPT/HCPCS: 36415; 80053; 81599; 82550; 83704

== ENCOUNTER 2018-02-25 15:58 | Outpatient (CLI) | payer MEDICARE, OTHER ==
[2018-02-25 16:29] LABS: ALBUMIN 4.3 g/dL (3.2-5.5); ALBUMIN/GLOBULIN RATIO 2.3 (1.0-2.2); BILIRUBIN,TOTAL 0.8 mg/dL (0.2-1.0); CALCIUM 8.8 mg/dL (8.5-10.3); CREATININE 1.3 mg/dL (0.6-1.2); PHOSPHORUS 3.3 mg/dL (2.5-4.6); TOTAL PROTEIN 6.2 g/dL (6.7-8.2)
== END 2018-02-25 15:59 | disposition home or self-care (01) ==
LOC: LAB 15:58
PROVIDERS: ATTEND Internal Medicine Cardiovascular Disease
DX: I10 Essential (primary) hypertension (principal)
CPT/HCPCS: 36415; 80053; 84100

== ENCOUNTER 2018-09-02 07:50 | Outpatient (CLI) | payer MEDICARE, OTHER ==
[2018-09-02 08:33] LABS: ALBUMIN 3.8 g/dL (3.2-5.5); ALBUMIN/GLOBULIN RATIO 1.5 (1.0-2.2); BILIRUBIN,TOTAL 0.8 mg/dL (0.2-1.0); CALCIUM 8.7 mg/dL (8.5-10.3); CREATININE 1.2 mg/dL (0.6-1.2); PHOSPHORUS 3.4 mg/dL (2.5-4.6); TOTAL PROTEIN 6.3 g/dL (6.7-8.2)
[2018-09-07 01:02] LABS: HDL LARGE 7218 nmol/L (3382-9376); LDL PARTICLE NUMBER 867 nmol/L (732-2035); LDL PATTERN A Pattern (A); LDL PEAK SIZE 225.5 Angstrom (> OR = 217.4); LDL SMALL 147 nmol/L (85-473)
== END 2018-09-02 07:51 | disposition home or self-care (01) ==
LOC: LAB 07:50
PROVIDERS: ATTEND Internal Medicine Cardiovascular Disease
DX: I10 Essential (primary) hypertension (principal); E78.00 Pure hypercholesterolemia, unspecified
CPT/HCPCS: 36415; 80053; 80069; 81599; 82465; 82550; 83704; 83718; 84478

== ENCOUNTER 2019-03-03 08:28 | Outpatient (CLI) | payer MEDICARE, OTHER ==
[2019-03-03 09:05] LABS: ALBUMIN 4.1 g/dL (3.2-5.5); ALBUMIN/GLOBULIN RATIO 1.7 (1.0-2.2); BILIRUBIN,TOTAL 0.9 mg/dL (0.2-1.0); CREATININE 1.3 mg/dL (0.6-1.2); TOTAL PROTEIN 6.5 g/dL (6.7-8.2)
[2019-03-09 20:21] LABS: HDL LARGE 6289 nmol/L (3382-9376); LDL PARTICLE NUMBER 709 nmol/L (732-2035); LDL PATTERN A Pattern (A); LDL SMALL 107 nmol/L (85-473)
== END 2019-03-03 08:29 | disposition home or self-care (01) ==
LOC: LAB 08:28
PROVIDERS: ATTEND Internal Medicine Cardiovascular Disease
DX: E78.49 Other hyperlipidemia (principal); E78.00 Pure hypercholesterolemia, unspecified
CPT/HCPCS: 36415; 80053; 80061; 81599; 82550; 83704

== ENCOUNTER 2019-06-05 09:15 | Outpatient (CLI) | payer MEDICARE, OTHER ==
[2019-06-05 14:35] LABS: BASOPHILS # (AUTO) 0.1 10^3/uL (0.0-0.1); BASOPHILS % (AUTO) 0.4 %; EOSINOPHILS # (AUTO) 0.3 10^3/uL (0.0-0.7); EOSINOPHILS % (AUTO) 2.7 %; HGB - HEMOGLOBIN 15.6 g/dL (14.0-18.0); LYMPHOCYTES # (AUTO) 1.8 10^3/uL (1.5-3.5); LYMPHOCYTES % (AUTO) 15.4 %; MEAN CORPUSCULAR HEMOGLOBIN 29.1 pg (27.0-31.0); MEAN CORPUSCULAR HGB CONC 31.4 g/dL (32.0-36.0); MEAN CORPUSCULAR VOLUME 92.6 fL (80.0-94.0); MEAN PLATELET VOLUME 11.8 fL (7.4-11.4); MONOCYTES # (AUTO) 1.3 10^3/uL (0.0-1.0); MONOCYTES % (AUTO) 10.7 %; NEUTROPHILS # (AUTO) 8.4 10^3/uL (1.5-6.6); NEUTROPHILS % (AUTO) 70.4 %; PLT - PLATELET COUNT 196 10^3/uL (130-450); RED BLOOD COUNT 5.37 10^6/uL (4.70-6.10); RED CELL DISTRIBUTION WIDTH 14.7 % (12.0-15.0); WHITE BLOOD COUNT 11.9 x10^3/uL (4.8-10.8)
== END 2019-06-05 09:16 | disposition home or self-care (01) ==
LOC: LAB.WCP 09:15
PROVIDERS: ATTEND Physician Assistant Medical
DX: R30.0 Dysuria (principal); I48.91 Unspecified atrial fibrillation; Z12.5 Encounter for screening for malignant neoplasm of prostate
CPT/HCPCS: 36415; 84153; 85025

== ENCOUNTER 2019-06-05 09:59 | Outpatient (CLI) | payer MEDICARE, OTHER ==
--- NOTE | 2019-06-05 14:51 | XRAY Report ---
Reason: LEFT WRIST PAIN Procedure Date: 06/05/2019 Accession Number: [id number] / [id number] Procedure: WCP - Wrist 3 View LT CPT Code: Final Report FULL RESULT: EXAM: LEFT WRIST RADIOGRAPHY EXAM DATE: 06/05/2019 09:59 AM. CLINICAL HISTORY: LEFT WRIST PAIN. Fall onto left wrist yesterday. Pain and swelling. COMPARISON: None. TECHNIQUE: 4 views. FINDINGS: Bones: Normal. No fractures or bone lesions. Joints: Mild widening of the scapholunate interval at about 4 mm. Moderate narrowing of the scaphoid-trapezium and first carpometacarpal joints. Soft Tissues: Normal. No soft tissue swelling. IMPRESSION: 1. No fracture is identified. 2. There is mild widening of the scapholunate interval suggesting scapholunate ligament injury of uncertain chronicity. 3. 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 RADIA
== END 2019-06-05 10:00 | disposition home or self-care (01) ==
LOC: DI.WCP 09:59
PROVIDERS: ATTEND Physician Assistant Medical
DX: M94.232 Chondromalacia, left wrist (principal); R30.0 Dysuria; I48.91 Unspecified atrial fibrillation; Z12.5 Encounter for screening for malignant neoplasm of prostate
CPT/HCPCS: 36415; 73110; 85025; G0103; 84153

== ENCOUNTER 2019-06-08 11:49 | Outpatient (CLI) | payer MEDICARE, OTHER ==
[2019-06-08 12:14] LABS: BILIRUBIN,URINE NEGATIVE (NEGATIVE); GLUCOSE, URINE (UA) NEGATIVE (NEGATIVE); KETONES,URINE (UA) NEGATIVE (NEGATIVE); LEUKOCYTE ESTERASE, URINE NEGATIVE (NEGATIVE); NITRITE,URINE NEGATIVE (NEGATIVE); OCCULT BLOOD,URINE TRACE-INTA (NEGATIVE); PH,URINE 5.5 PH (5.0-7.5); PROTEIN,URINE NEGATIVE (NEGATIVE); UROBILINOGEN,URINE 0.2 (NORMAL) E.U./dL (NORMAL)
[2019-06-08 12:23] LABS: CLARITY,URINE CLEAR (CLEAR)
== END 2019-06-08 11:50 | disposition home or self-care (01) ==
LOC: LAB 11:49
PROVIDERS: ATTEND Physician Assistant Medical
DX: R30.0 Dysuria (principal)
CPT/HCPCS: 81001; 81003; 87086

== ENCOUNTER 2019-06-08 22:27 | Outpatient (CLI) | payer MEDICARE, OTHER | END 2019-06-08 23:59 | disposition critical access hospital (66) | LOC: EMS 22:27 | PROVIDERS: ATTEND Surgery | DX: R51 Headache (principal) | CPT/HCPCS: A0425; A0429 ==

== ENCOUNTER 2019-06-08 22:40 | Emergency (ER) | payer MEDICARE, OTHER ==
--- NOTE | 2019-06-09 00:28 | ED Physician Documentation ---
PD HPI HEADACHE - Additional information Additional information: see paper chart (downtime) PD PAST MEDICAL HISTORY - Past Medical History Cardiovascular: Hypertension, High cholesterol, Atrial fibrillation - Past Surgical History Past Surgical History: Yes General: Cholecystectomy, Appendectomy Ortho: Knee replacement HEENT: Cataracts, Tonsil/Adenoidectomy - Present Medications Home Medications: Ambulatory Orders Medication Instructions Recorded Confirmed Dronedarone HCl [Multaq] 400 mg PO BID 12/10/12 04/17/15 Warfarin [Coumadin] 5 mg PO DAILY 12/10/12 03/08/17 Albuterol [Ventolin Hfa] 2 puffs INH Q6H PRN 04/14/15 04/17/15 Methylcellulose [Citrucel] 500 mg PO BID 04/14/15 04/17/15 Pitavastatin Calcium [Livalo] 1 mg PO DAILY 04/14/15 04/17/15 Warfarin [Coumadin] 2.5 mg PO DAILY 04/17/15 04/17/15 HYDROcod/ACETAM 5/325 [[place] 5/325] 1 - 2 ea PO Q6H PRN #15 tablet 03/08/17 Promethazine [Phenergan] 25 - 50 mg PO Q6H PRN #15 tab 03/08/17 Oxycodone HCl/Acetaminophen 1 each PO Q3HR PRN #20 tablet 03/12/17 [Percocet 5-325 mg Tablet] - Allergies Allergies/Adverse Reactions: Allergies Allergy/AdvReac Type Severity Reaction Status Date / Time iodine Allergy Unknown Verified 03/08/17 16:44 Penicillins Allergy Rash Verified 03/08/17 16:44 Rqgmsty-Qhf-Ckr Reductase Allergy Unknown Verified 03/08/17 16:44 Inhibitor Sulfa (Sulfonamide Allergy Rash Verified 03/08/17 16:44 Antibiotics) - Social History Does the pt smoke?: No Smoking Status: Never smoker Does the pt drink ETOH?: No Does the pt have substance abuse?: No - Immunizations Immunizations are current?: Yes Results - Vitals Vitals: Oxygen O2 Source Room air - Labs Labs: Laboratory Tests 06/09/19 06/09/19 00:25 00:25 WBC 7.1 RBC 4.87 Hgb 14.4 Hct 45.1 MCV 92.6 MCH 29.6 MCHC 31.9 L RDW 14.6 Plt Count 181 MPV 10.7 Neut # (Auto) 3.8 Lymph # (Auto) 2.1 [place] # (Auto) 0.8 Eos # (Auto) 0.4 Baso # (Auto) 0.0 Absolute Nucleated RBC 0.00 Nucleated RBC % 0.0 Sodium 141 Potassium 4.1 Chloride 108 Carbon Dioxide 25 Anion Gap 8.0 BUN 20 Creatinine 1.2 Estimated GFR (MDRD) 58 L Glucose 116 H Calcium 8.8 Total Bilirubin 0.5 AST 17 ALT 15 Alkaline Phosphatase 54 Total Protein 6.2 L Albumin 3.7 Globulin 2.5 Albumin/Globulin Ratio 1.5 Lipase 43 PD MEDICAL DECISION MAKING - ED course ED course: See paper chart ([facility] downtime). In addition to paper chart: IOP right eye measured by me using iCare tonometer, result is 13. On reevaluation after tests resulted, patient is in NAD. Results d/w patient and he is comfortable with d/c and return to ED if worse in any way. I encouraged him to try to make it to his scheduled appointment with his midlevel provider later today and he will try to do so. Departure - Departure Disposition: 01 Home, Self Care Clinical Impression: Headache Qualifiers: Headache type: unspecified Headache chronicity pattern: acute headache Intractability: not intractable Qualified Code(s): R51 - Headache Condition: Good Instructions: ED Cephalgia Unspecified Comments: Follow up with your midlevel provider today as scheduled Discharge Date/Time: 06/09/19 02:24
[2019-06-09 00:38] LABS: BASOPHILS % (AUTO) 0.4 %; EOSINOPHILS # (AUTO) 0.4 10^3/uL (0.0-0.7); EOSINOPHILS % (AUTO) 5.6 %; HGB - HEMOGLOBIN 14.4 g/dL (14.0-18.0); LYMPHOCYTES # (AUTO) 2.1 10^3/uL (1.5-3.5); LYMPHOCYTES % (AUTO) 29.5 %; MEAN CORPUSCULAR HEMOGLOBIN 29.6 pg (27.0-31.0); MEAN CORPUSCULAR HGB CONC 31.9 g/dL (32.0-36.0); MEAN CORPUSCULAR VOLUME 92.6 fL (80.0-94.0); MEAN PLATELET VOLUME 10.7 fL (7.4-11.4); MONOCYTES # (AUTO) 0.8 10^3/uL (0.0-1.0); NEUTROPHILS # (AUTO) 3.8 10^3/uL (1.5-6.6); NEUTROPHILS % (AUTO) 53.2 %; PLT - PLATELET COUNT 181 10^3/uL (130-450); RED BLOOD COUNT 4.87 10^6/uL (4.70-6.10); RED CELL DISTRIBUTION WIDTH 14.6 % (12.0-15.0); WHITE BLOOD COUNT 7.1 x10^3/uL (4.8-10.8)
[2019-06-09 00:52] LABS: ALBUMIN 3.7 g/dL (3.2-5.5); ALBUMIN/GLOBULIN RATIO 1.5 (1.0-2.2); BILIRUBIN,TOTAL 0.5 mg/dL (0.2-1.0); CALCIUM 8.8 mg/dL (8.5-10.3); CREATININE 1.2 mg/dL (0.6-1.2); TOTAL PROTEIN 6.2 g/dL (6.7-8.2)
[2019-06-09] MEDS ORDERED: PROPARACAINE 0.5% OPHTH DROPS 15 ML RIGHTEYE STA (01:10)
[2019-06-09 02:25] VITALS: BP 127/72
[2019-06-09] MEDS ORDERED: ACETAMINOPHEN 325 MG TABLET PO STA (02:26)
--- NOTE | 2019-06-09 11:21 | CT Report ---
Reason: HEADACHE Procedure Date: 06/09/2019 Accession Number: [id number] / [id number] Procedure: CT - HEAD WO CPT Code: Final Report FULL RESULT: EXAM: CT HEAD EXAM DATE: 06/09/2019 12:35 AM. CLINICAL HISTORY: Headaches COMPARISON: HEAD W/O 04/14/2015 12:52 PM. TECHNIQUE: Multiaxial CT images were obtained from the foramen magnum to the vertex. Reformats: Sagittal and coronal. IV contrast: None. In accordance with CT protocol optimization, one or more of the following dose reduction techniques were utilized for this exam: automated exposure control, adjustment of mA and/or KV based on patient size, or use of iterative reconstructive technique. FINDINGS: Parenchyma: No intraparenchymal hemorrhage. No evidence of mass, midline shift, or CT findings of acute infarction. [place]-white differentiation is distinct. There are changes of microangiopathy within the white matter tracks. Extraaxial Spaces: Normal for age. No subdural or epidural collections identified. Ventricles: Normal in size and position. Sinuses and Orbits: Imaged paranasal sinuses, orbits, and mastoids show no significant abnormality. Bones: No evidence of fracture or calvarial defect. Other: None. IMPRESSION: 1. Age related changes of the brain. No acute findings. RADIA
== END 2019-06-09 02:24 | disposition home or self-care (01) ==
LOC: ED 22:40
DX: R51 Headache (principal); I10 Essential (primary) hypertension; R30.0 Dysuria; M31.6 Other giant cell arteritis
CPT/HCPCS: 36415; 70450; 80053; 81003; 83690; 85025; 85651; 99284; A9270; J3490

== ENCOUNTER 2019-06-09 16:10 | Outpatient (CLI) | payer MEDICARE, OTHER | END 2019-06-09 16:11 | disposition home or self-care (01) | LOC: LAB 16:10 | DX: M31.6 Other giant cell arteritis (principal) | CPT/HCPCS: 36415; 85651 ==

== ENCOUNTER 2019-06-30 07:31 | Outpatient (CLI) | payer MEDICARE, OTHER ==
[2019-06-30 08:09] LABS: BASOPHILS # (AUTO) 0.1 10^3/uL (0.0-0.1); BASOPHILS % (AUTO) 0.7 %; EOSINOPHILS # (AUTO) 0.3 10^3/uL (0.0-0.7); EOSINOPHILS % (AUTO) 4.3 %; HGB - HEMOGLOBIN 15.3 g/dL (14.0-18.0); LYMPHOCYTES # (AUTO) 2.2 10^3/uL (1.5-3.5); LYMPHOCYTES % (AUTO) 33.2 %; MEAN CORPUSCULAR HEMOGLOBIN 29.6 pg (27.0-31.0); MEAN CORPUSCULAR HGB CONC 31.5 g/dL (32.0-36.0); MEAN PLATELET VOLUME 11.2 fL (7.4-11.4); MONOCYTES # (AUTO) 0.6 10^3/uL (0.0-1.0); MONOCYTES % (AUTO) 8.9 %; NEUTROPHILS # (AUTO) 3.5 10^3/uL (1.5-6.6); NEUTROPHILS % (AUTO) 52.5 %; PLT - PLATELET COUNT 175 10^3/uL (130-450); RED BLOOD COUNT 5.17 10^6/uL (4.70-6.10); RED CELL DISTRIBUTION WIDTH 14.7 % (12.0-15.0); WHITE BLOOD COUNT 6.7 x10^3/uL (4.8-10.8)
[2019-06-30 08:22] LABS: CHOL/HDL RATIO 2.1 (<5.0); CHOLESTEROL 139 mg/dL; HDL CHOLESTEROL 66 mg/dL; LDL CHOLESTEROL,CALCULATED 64 mg/dL; VLDL CHOLESTEROL 9 mg/dL
== END 2019-06-30 07:32 | disposition home or self-care (01) ==
LOC: LAB 07:31
PROVIDERS: ATTEND Physician Assistant Medical
DX: E78.5 Hyperlipidemia, unspecified (principal); I48.91 Unspecified atrial fibrillation; D72.829 Elevated white blood cell count, unspecified; I10 Essential (primary) hypertension
CPT/HCPCS: 36415; 80061; 83721; 84443; 85025

== ENCOUNTER 2020-12-12 08:00 | Outpatient (CLI) | payer MEDICARE, OTHER ==
[2020-12-12 11:56] LABS: BASOPHILS # (AUTO) 0.1 10^3/uL (0.0-0.1); BASOPHILS % (AUTO) 0.8 %; EOSINOPHILS # (AUTO) 0.5 10^3/uL (0.0-0.7); EOSINOPHILS % (AUTO) 7.6 %; HCT - HEMATOCRIT 46.4 % (42.0-52.0); HGB - HEMOGLOBIN 14.5 g/dL (14.0-18.0); LYMPHOCYTES # (AUTO) 2.1 10^3/uL (1.5-3.5); LYMPHOCYTES % (AUTO) 29.5 %; MEAN CORPUSCULAR HEMOGLOBIN 29.4 pg (27.0-31.0); MEAN CORPUSCULAR HGB CONC 31.3 g/dL (32.0-36.0); MEAN CORPUSCULAR VOLUME 93.9 fL (80.0-94.0); MEAN PLATELET VOLUME 11.7 fL (7.4-11.4); MONOCYTES # (AUTO) 0.8 10^3/uL (0.0-1.0); MONOCYTES % (AUTO) 10.5 %; NEUTROPHILS # (AUTO) 3.7 10^3/uL (1.5-6.6); NEUTROPHILS % (AUTO) 51.2 %; PLT - PLATELET COUNT 182 10^3/uL (130-450); RED BLOOD COUNT 4.94 10^6/uL (4.70-6.10); RED CELL DISTRIBUTION WIDTH 14.7 % (12.0-15.0); WHITE BLOOD COUNT 7.1 x10^3/uL (4.8-10.8)
[2020-12-12 12:30] LABS: THYROID STIMULATING HORMONE 1.41 uIU/mL (0.34-5.60)
[2020-12-12 12:34] LABS: ALBUMIN 4.1 g/dL (3.2-5.5); ALBUMIN/GLOBULIN RATIO 1.6 (1.0-2.2); ALKALINE PHOSPHATASE 52 IU/L (42-121); ALT ALANINE AMINOTRANSFERASE 14 IU/L (10-60); AST ASPARTATE AMINOTRANSFERASE 19 IU/L (10-42); BILIRUBIN,TOTAL 0.9 mg/dL (0.2-1.0); BUN - BLOOD UREA NITROGEN 22 mg/dL (6-20); CALCIUM 9.6 mg/dL (8.5-10.3); CARBON DIOXIDE - CO2 30 mmol/L (21-32); CHLORIDE 106 mmol/L (101-111); CHOLESTEROL 147 mg/dL; CREATININE 1.1 mg/dL (0.6-1.2); GFR - MDRD 64 (>89); GLUCOSE 85 mg/dL (70-100); HDL CHOLESTEROL 74 mg/dL; POTASSIUM 4.3 mmol/L (3.5-5.0); SODIUM 146 mmol/L (135-145); TOTAL PROTEIN 6.6 g/dL (6.7-8.2); TRIGLYCERIDES 32 mg/dL
== END 2020-12-12 23:59 | disposition home or self-care (01) ==
LOC: LAB.WCP 08:00
PROVIDERS: ATTEND Physician Assistant Medical
DX: E78.5 Hyperlipidemia, unspecified (principal)
CPT/HCPCS: 36415; 80053; 80061; 83721; 84443; 85025

== ENCOUNTER 2021-01-20 13:33 | Outpatient (CLI) | payer MEDICARE, OTHER | END 2021-01-20 13:34 | disposition home or self-care (01) | LOC: COV 13:33 | PROVIDERS: ATTEND Family Medicine | DX: R53.83 Other fatigue (principal); R11.2 Nausea with vomiting, unspecified; Z20.822 Contact with and (suspected) exposure to COVID-19 ==

== ENCOUNTER 2021-07-14 10:30 | Outpatient (CLI) | payer MEDICARE, OTHER | END 2021-07-14 23:59 | disposition home or self-care (01) | LOC: LAB 10:30 | PROVIDERS: ATTEND Nurse Practitioner Family | DX: L08.9 Local infection of the skin and subcutaneous tissue, unspecified (principal) | CPT/HCPCS: 87070; 87077; 87081; 87205 ==

== ENCOUNTER 2021-07-21 07:26 | Outpatient (CLI) | payer MEDICARE, OTHER ==
[2021-07-21 07:53] LABS: BASOPHILS % (AUTO) 0.6 %; EOSINOPHILS # (AUTO) 0.2 10^3/uL (0.0-0.7); EOSINOPHILS % (AUTO) 3.7 %; HCT - HEMATOCRIT 46.4 % (42.0-52.0); HGB - HEMOGLOBIN 14.8 g/dL (14.0-18.0); LYMPHOCYTES # (AUTO) 2.2 10^3/uL (1.5-3.5); LYMPHOCYTES % (AUTO) 33.6 %; MEAN CORPUSCULAR HEMOGLOBIN 29.2 pg (27.0-31.0); MEAN CORPUSCULAR HGB CONC 31.9 g/dL (32.0-36.0); MEAN CORPUSCULAR VOLUME 91.7 fL (80.0-94.0); MONOCYTES # (AUTO) 0.6 10^3/uL (0.0-1.0); MONOCYTES % (AUTO) 9.5 %; NEUTROPHILS # (AUTO) 3.4 10^3/uL (1.5-6.6); NEUTROPHILS % (AUTO) 52.1 %; PLT - PLATELET COUNT 185 10^3/uL (130-450); RED BLOOD COUNT 5.06 10^6/uL (4.70-6.10); RED CELL DISTRIBUTION WIDTH 14.4 % (12.0-15.0); WHITE BLOOD COUNT 6.6 x10^3/uL (4.8-10.8)
[2021-07-21 08:12] LABS: ALBUMIN 4.1 g/dL (3.2-5.5); ALBUMIN/GLOBULIN RATIO 1.8 (1.0-2.2); ALKALINE PHOSPHATASE 46 IU/L (42-121); ALT ALANINE AMINOTRANSFERASE 16 IU/L (10-60); AST ASPARTATE AMINOTRANSFERASE 19 IU/L (10-42); BILIRUBIN,TOTAL 1.1 mg/dL (0.2-1.0); BUN - BLOOD UREA NITROGEN 20 mg/dL (6-20); CALCIUM 8.9 mg/dL (8.5-10.3); CARBON DIOXIDE - CO2 27 mmol/L (21-32); CHLORIDE 103 mmol/L (101-111); CHOLESTEROL 146 mg/dL; CREATININE 1.2 mg/dL (0.6-1.2); GFR - MDRD 58 (>89); GLUCOSE 98 mg/dL (70-100); HDL CHOLESTEROL 72 mg/dL; LDL CHOLESTEROL,CALCULATED 65 mg/dL; LDL/HDL RATIO 0.9 (<3.6); POTASSIUM 3.9 mmol/L (3.5-5.0); SODIUM 137 mmol/L (135-145); TOTAL PROTEIN 6.4 g/dL (6.7-8.2); TRIGLYCERIDES 47 mg/dL; VLDL CHOLESTEROL 9 mg/dL
[2021-07-21 08:23] LABS: THYROID STIMULATING HORMONE 2.49 uIU/mL (0.34-5.60)
== END 2021-07-21 07:27 | disposition home or self-care (01) ==
LOC: LAB 07:26
PROVIDERS: ATTEND Internal Medicine Cardiovascular Disease
DX: E78.49 Other hyperlipidemia (principal); R03.0 Elevated blood-pressure reading, without diagnosis of hypertension; T45.2X Poisoning by, adverse effect of and underdosing of vitamins; Z13.29 Encounter for screening for other suspected endocrine disorder
CPT/HCPCS: 36415; 80053; 80061; 81599; 82306; 82550; 82607; 83704; 83721; 84443; 85025

== ENCOUNTER 2021-07-22 08:00 | Outpatient (CLI) | payer MEDICARE, OTHER | END 2021-07-22 23:59 | disposition home or self-care (01) | LOC: LAB.R 08:00 | PROVIDERS: ATTEND Physician Assistant Medical | DX: L08.9 Local infection of the skin and subcutaneous tissue, unspecified (principal) | CPT/HCPCS: 87070; 87077; 87205 ==

== ENCOUNTER 2021-11-03 16:11 | Outpatient (CLI) | payer MEDICARE, OTHER ==
--- NOTE | 2021-11-04 15:43 | Ultrasound Report ---
PROCEDURE: Testicle INDICATIONS: RIGHT TESTICULAR PAIN TECHNIQUE: Real-time scanning was performed of the scrotum and testicles, with image documentation. Color and p ulse Doppler interrogation was performed of both testicles. COMPARISON: None. FINDINGS: Right: Testicle is normal in size at 4.7 x 2.8 x 3.0 cm, and homogenous in echotexture. Epididymis demonstrates a cyst measuring 7 x 6 x 5 mm. moderate hydrocele without varicoceles. Overlying scrota l skin is normal in thickness. Left: Testicle is normal in size at 6.7 x 2.6 x 2.3 cm, and homogeneous in echotexture. Epididymis demonstrates a cyst measuring 9 x 5 x 7 mm.. Mild hydrocele without varicoceles. Overlying scrotal s kin is normal in thickness. Doppler: Color and pulse Doppler demonstrate normal and symmetric arterial flow in both testicles. IMPRESSION: No torsion at time of exam. Intermittent torsion cannot be excluded. Bilateral epididymal cysts. Bilateral hydroceles, right greater than left. Reviewed by: Leticia Lazo MD on 11/04/2021 3:42 PM PDT Approved by: Leticia Lazo MD on 11/04/2021 3:42 PM PDT Station ID: [id number]
== END 2021-11-03 16:12 | disposition home or self-care (01) ==
LOC: DI 16:11
PROVIDERS: ATTEND Family Medicine
DX: N50.3 Cyst of epididymis (principal); N43.3 Hydrocele, unspecified

== ENCOUNTER 2021-11-05 18:43 | Outpatient (CLI) | payer MEDICARE, OTHER ==
--- NOTE | 2021-11-06 10:00 | Ultrasound Report ---
PROCEDURE: Bladder INDICATIONS: INCOMPLETE BLADDER EMPTYING TECHNIQUE: Real-time scanning was performed of the bladder, with image documentation. COMPARISON: None FINDINGS: Bladder: Pre-void bladder volume is 187 mL. Post-void residual is 62 mL. Pre-void images demonstra te no intraluminal masses or stones. There is mucosal irregularity, possibly secondary to heavy trabe culation. On pre-void images, bilateral ureteral jets are noted with color Doppler interrogation. (O f note, ureteral jets may not be detectable in up to 25% of cases due to insufficient differences in specific gravity between ureteral and bladder urine). Miscellaneous: No free pelvic fluid. The visible portion of the prostate gland measures 4.8 x 3.6 x 5.1 cm and is mildly heterogeneous. IMPRESSION: 1. Moderate-sized postvoid residual. 2. Heavily trabeculated urinary bladder, most likely secondary to chronic overdistention. 3. Mild prostatomegaly. Reviewed by: Jazmin Williamson MD on 11/06/2021 9:58 AM PDT Approved by: Jazmin Williamson MD on 11/06/2021 9:58 AM PDT Station ID: [id number]
== END 2021-11-05 18:44 | disposition home or self-care (01) ==
LOC: DI 18:43
PROVIDERS: ATTEND Family Medicine
DX: N40.1 Benign prostatic hyperplasia with lower urinary tract symptoms (principal); R39.14 Feeling of incomplete bladder emptying; N32.89 Other specified disorders of bladder

== ENCOUNTER 2021-12-01 17:13 | Outpatient (CLI) | payer MEDICARE, OTHER ==
[2021-12-01 18:02] LABS: THYROID STIMULATING HORMONE 1.19 uIU/mL (0.34-5.60)
[2021-12-01 18:09] LABS: FERRITIN 61.9 ng/mL (23.9-336.2)
== END 2021-12-01 17:14 | disposition home or self-care (01) ==
LOC: LAB 17:13
PROVIDERS: ATTEND Physician Assistant Medical
DX: R53.83 Other fatigue (principal)
CPT/HCPCS: 36415; 82306; 82607; 82728; 84443

== ENCOUNTER 2023-01-08 08:44 | Outpatient (CLI) | payer MEDICARE, OTHER ==
[2023-01-08 09:07] LABS: BASOPHILS % (AUTO) 0.5 %; EOSINOPHILS # (AUTO) 0.4 10^3/uL (0.0-0.7); EOSINOPHILS % (AUTO) 6.3 %; HCT - HEMATOCRIT 43.6 % (42.0-52.0); HGB - HEMOGLOBIN 13.9 g/dL (14.0-18.0); LYMPHOCYTES # (AUTO) 1.8 10^3/uL (1.5-3.5); LYMPHOCYTES % (AUTO) 30.4 %; MEAN CORPUSCULAR HEMOGLOBIN 29.2 pg (27.0-31.0); MEAN CORPUSCULAR HGB CONC 31.9 g/dL (32.0-36.0); MEAN CORPUSCULAR VOLUME 91.6 fL (80.0-94.0); MEAN PLATELET VOLUME 10.5 fL (7.4-11.4); MONOCYTES # (AUTO) 0.7 10^3/uL (0.0-1.0); MONOCYTES % (AUTO) 11.6 %; NEUTROPHILS # (AUTO) 3.1 10^3/uL (1.5-6.6); NEUTROPHILS % (AUTO) 50.9 %; PLT - PLATELET COUNT 166 10^3/uL (130-450); RED BLOOD COUNT 4.76 10^6/uL (4.70-6.10); RED CELL DISTRIBUTION WIDTH 14.8 % (12.0-15.0); WHITE BLOOD COUNT 6.1 x10^3/uL (4.8-10.8)
[2023-01-08 09:22] LABS: ALBUMIN 3.9 g/dL (3.2-5.5); ALBUMIN/GLOBULIN RATIO 1.6 (1.0-2.2); BILIRUBIN,TOTAL 0.6 mg/dL (0.2-1.0); CREATININE 1.1 mg/dL (0.6-1.3); TOTAL PROTEIN 6.3 g/dL (6.4-8.9)
[2023-01-11 08:09] LABS: HDL-P (TOTAL) 34.9 umol/L (>=30.5); LDL SIZE 21.3 nm (>20.5); LDL-P 401 nmol/L (<1000); LP-INSULIN RESISTANCE SCORE <25 (<=45); SMALL LDL-P <90 nmol/L (<=527)
== END 2023-01-08 08:45 | disposition home or self-care (01) ==
LOC: LAB 08:44
PROVIDERS: ATTEND Internal Medicine Cardiovascular Disease
DX: I48.91 Unspecified atrial fibrillation (principal); I25.10 Atherosclerotic heart disease of native coronary artery without angina pectoris; E78.5 Hyperlipidemia, unspecified; Z51.81 Encounter for therapeutic drug level monitoring
CPT/HCPCS: 36415; 80053; 82550; 83704; 85025

== ENCOUNTER 2023-04-22 07:25 | Outpatient (CLI) | payer MEDICARE, OTHER ==
[2023-04-22 07:58] LABS: CALCIUM 9.4 mg/dL (8.5-10.3); CREATININE 1.2 mg/dL (0.6-1.3); POTASSIUM 4.2 mmol/L (3.5-4.5)
== END 2023-04-22 07:26 | disposition home or self-care (01) ==
LOC: LAB 07:25
PROVIDERS: ATTEND Physician Assistant Medical
DX: R20.2 Paresthesia of skin (principal)
CPT/HCPCS: 36415; 80048; 82607

== ENCOUNTER 2023-07-29 07:24 | Outpatient (CLI) | payer MEDICARE | END 2023-07-29 07:25 | disposition critical access hospital (66) | LOC: EMS 07:24 | DX: R20.2 Paresthesia of skin (principal); R20.0 Anesthesia of skin; R51.9 Headache, unspecified; S51.812A Laceration without foreign body of left forearm, initial encounter; W18.30XA Fall on same level, unspecified, initial encounter; Y92.019 Unspecified place in single-family (private) house as the place of occurrence of the external cause; Z79.01 Long term (current) use of anticoagulants | CPT/HCPCS: A0425; A0429 ==

== ENCOUNTER 2023-07-29 07:32 | Emergency (ER) | payer MEDICARE, OTHER ==
[2023-07-29 07:55] LABS: BASOPHILS % (AUTO) 0.5 %; EOSINOPHILS # (AUTO) 0.3 10^3/uL (0.0-0.7); EOSINOPHILS % (AUTO) 4.5 %; HCT - HEMATOCRIT 41.4 % (42.0-52.0); HGB - HEMOGLOBIN 13.2 g/dL (14.0-18.0); LYMPHOCYTES % (AUTO) 32.8 %; MEAN CORPUSCULAR HEMOGLOBIN 29.5 pg (27.0-31.0); MEAN CORPUSCULAR HGB CONC 31.9 g/dL (32.0-36.0); MEAN CORPUSCULAR VOLUME 92.6 fL (80.0-94.0); MEAN PLATELET VOLUME 10.8 fL (7.4-11.4); MONOCYTES # (AUTO) 0.6 10^3/uL (0.0-1.0); MONOCYTES % (AUTO) 9.4 %; NEUTROPHILS # (AUTO) 3.1 10^3/uL (1.5-6.6); NEUTROPHILS % (AUTO) 52.5 %; PLT - PLATELET COUNT 199 10^3/uL (130-450); RED BLOOD COUNT 4.47 10^6/uL (4.70-6.10); RED CELL DISTRIBUTION WIDTH 14.9 % (12.0-15.0)
[2023-07-29 07:57] LABS: ALBUMIN 3.7 g/dL (3.2-5.5); ALBUMIN/GLOBULIN RATIO 1.8 (1.0-2.2); BILIRUBIN,TOTAL 0.7 mg/dL (0.2-1.0); CALCIUM 9.4 mg/dL (8.5-10.3); CREATININE 1.1 mg/dL (0.6-1.3); TOTAL PROTEIN 5.8 g/dL (6.4-8.9)
--- NOTE | 2023-07-29 08:26 | CT Report ---
PROCEDURE: Cervical Spine WO INDICATIONS: head injury TECHNIQUE: Noncontrast 3 mm thick sections acquired from the skull base to the T4 level. Sagittal and coronal r eformats were then constructed. For radiation dose reduction, the following was used: automated exp osure control, adjustment of mA and/or kV according to patient size. COMPARISON: None. FINDINGS: Image quality: Excellent. Bones: No fractures or dislocations. Visualized superior ribs are intact. Cervical spondylosis wit h multilevel uncovertebral joint hypertrophy resulting in multilevel bony foraminal narrowing. Findin gs include severe right bony foraminal narrowing at C5-C6. Soft tissues: Prevertebral soft tissues are normal in thickness. No paravertebral hematomas. No ap ical pneumothoraces. IMPRESSION: 1. No acute cervical fracture or dislocation. 2. Cervical spondylosis. Reviewed by: Adán Madsen MD on 07/29/2023 8:24 AM PST Approved by: Adán Madsen MD on 07/29/2023 8:24 AM PST Station ID: [id number]
--- NOTE | 2023-07-29 08:27 | CT Report ---
PROCEDURE: Head WO INDICATIONS: head injury/eliquis TECHNIQUE: Noncontrast 4.5 mm thick angled axial sections acquired from the foramen magnum to the vertex. For r adiation dose reduction, the following was used: automated exposure control, adjustment of mA and/or kV according to patient size. COMPARISON: 01/17/2022. FINDINGS: Image quality: Excellent. CSF spaces: Basal cisterns are patent. No extra-axial fluid collections. Ventricles are normal in size and shape. Brain: No midline shift. No intracranial masses or hemorrhage. [place]-white matter interface is norm al. Intracranial carotid calcifications. Age-related volume loss and small vessel ischemic change. Skull and face: Calvarium and visualized facial bones are intact, without suspicious lesions. Sinuses: Visualized sinuses and mastoids are clear. IMPRESSION: No acute intracranial pathology. Reviewed by: Adán Madsen MD on 07/29/2023 8:26 AM PST Approved by: Adán Madsen MD on 07/29/2023 8:26 AM PST Station ID: [id number]
[2023-07-29] MEDS: ONDANSETRON 4 MG/2 ML VIAL IVP STA (08:33)
--- NOTE | 2023-07-29 09:07 | ED Physician Documentation ---
History of Present Illness - Stated complaint Stated Complaint: GLF/DIZZY - Chief complaint Chief Complaint: General - History obtained from History obtained from: Patient - Additonal information Additional information: Patient is an 88-year-old male with a history of atrial fibrillation on Eliquis presenting for evaluation after a syncopal episode.Patient reports having ongoing issues with nausea and vomiting regularly for the past several months and is awaiting an upper endoscopy. This morning he started feeling nauseous and went to the bathroom. He sat down to have a bowel movement and was able to have a small BM. He then stood up and started feeling lightheaded and then recalls waking up on the ground. He did hit his head. He is on Eliquis. He also reports this morning having some discomfort in the right hand which she states is similar to the carpal tunnel pain he has been having. He does sometimes wear a brace but did not wear 1 last night. The pain does radiate up his right arm. No fever, chest pain, shortness of air, abdominal pain.He has been prescribed Prilosec to see if this will help with his nausea and vomiting and states that it did decrease his episodes of vomiting but he has been out of it for the past 4 days. His last episode of emesis was 2 days ago. Review of Systems Constitutional: denies: Fever Cardiac: denies: Chest pain / pressure Respiratory: denies: Dyspnea GI: reports: Nausea. denies: Abdominal Pain : denies: Dysuria Neurologic: reports: Head injury PD PAST MEDICAL HISTORY - Past Medical History Cardiovascular: Hypertension, High cholesterol, Atrial fibrillation - Past Surgical History Past Surgical History: Yes General: Cholecystectomy, Appendectomy Ortho: Knee replacement HEENT: Cataracts, Tonsil/Adenoidectomy - Present Medications Home Medications: Ambulatory Orders Medication Instructions Recorded Confirmed Dronedarone HCl [Multaq] 400 mg PO BID 12/10/12 04/17/15 Warfarin [Coumadin] 5 mg PO DAILY 12/10/12 03/08/17 Albuterol [Ventolin Hfa] 2 puffs INH Q6H PRN 04/14/15 04/17/15 Methylcellulose [Citrucel] 500 mg PO BID 04/14/15 04/17/15 Pitavastatin Calcium [Livalo] 1 mg PO DAILY 04/14/15 04/17/15 Warfarin [Coumadin] 2.5 mg PO DAILY 04/17/15 04/17/15 HYDROcod/ACETAM 5/325 [[place] 5/325] 1 - 2 ea PO Q6H PRN #15 tablet 03/08/17 Promethazine [Phenergan] 25 - 50 mg PO Q6H PRN #15 tab 03/08/17 Oxycodone HCl/Acetaminophen 1 each PO Q3HR PRN #20 tablet 03/12/17 [Percocet 5-325 mg Tablet] - Allergies Allergies/Adverse Reactions: Allergies Allergy/AdvReac Type Severity Reaction Status Date / Time iodine Allergy Unknown Verified 07/29/23 07:55 Penicillins Allergy Rash Verified 07/29/23 07:55 Ftqzxkh-XZK-YoX Reductase Allergy Unknown Verified 07/29/23 07:55 Inhibitor [Vtuhhzj-Jbb-Ydi Reductase Inhibitor] Sulfa (Sulfonamide Allergy Rash Verified 07/29/23 07:55 Antibiotics) - Social History Does the pt smoke?: No Smoking Status: Never smoker Does the pt drink ETOH?: No Does the pt have substance abuse?: No - Immunizations Immunizations are current?: Yes PD ED PE NORMAL - General General: Alert and oriented X 3, No acute distress, Well developed/nourished - HEENT HEENT: Atraumatic, PERRL, EOMI, Moist mucous membranes, Pharynx benign - Neck Neck: Supple, no meningeal sign, No bony TTP - Cardiac Cardiac: Strong equal pulses, Other (Bradycardia, regular rhythm) - Respiratory Respiratory: No respiratory distress, Clear bilaterally - Abdomen Abdomen: Normal bowel sounds, Soft, Non tender, Non distended - Derm Derm: Warm and dry - Extremities Extremities: No deformity, Normal ROM s pain - Neuro Neuro: Alert and oriented X 3, finger lift operator 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, No motor deficit, No sensory deficit, Normal speech Eye Opening: Spontaneous Motor: Obeys Commands Verbal: Oriented GCS Score: 15 Results - Vitals Vitals: Vital Signs - 24 hr 07/29/23 07/29/23 07/29/23 07:43 08:45 09:44 Temperature 35.9 C L Heart Rate 55 L 55 L Heart Rate [ 50 L Sitting] Heart Rate [ 54 L Standing] Heart Rate [ 67 Supine] Respiratory 13 13 Rate Blood Pressure 132/81 H 111/55 L Blood Pressure 118/62 [Sitting] Blood Pressure 108/67 [Standing] Blood Pressure 111/59 L [Supine] O2 Saturation 99 98 07/29/23 11:47 Temperature Heart Rate 56 L Heart Rate [ Sitting] Heart Rate [ Standing] Heart Rate [ Supine] Respiratory 18 Rate Blood Pressure 109/71 Blood Pressure [Sitting] Blood Pressure [Standing] Blood Pressure [Supine] O2 Saturation 99 Oxygen O2 Source Room air - EKG (time done) 0749 EKG releavant findings:: EKG personally interpreted by author of this note. Relevant findings are: Rate 50, sinus bradycardia, PA 243, no STEMI, QTc 470 - Labs Labs: Laboratory Tests 07/29/23 07/29/23 07/29/23 07:36 07:36 07:36 WBC 6.0 RBC 4.47 L Hgb 13.2 L Hct 41.4 L MCV 92.6 MCH 29.5 MCHC 31.9 L RDW 14.9 Plt Count 199 MPV 10.8 Neut # (Auto) 3.1 Lymph # (Auto) 2.0 [place] # (Auto) 0.6 Eos # (Auto) 0.3 Baso # (Auto) 0.0 Absolute Nucleated RBC 0.00 Nucleated RBC % 0.0 Sodium 142 Potassium 4.0 Chloride 108 Carbon Dioxide 29 Anion Gap 5.0 L BUN 24 H Creatinine 1.1 Estimated GFR (MDRD) 63 L Glucose 94 Calcium 9.4 Magnesium 2.0 Total Bilirubin 0.7 AST 16 ALT 11 Alkaline Phosphatase 49 Total Protein 5.8 L Albumin 3.7 Globulin 2.1 Albumin/Globulin Ratio 1.8 Lipase 21 PD Medical Decision Making - ED course Complexity details: reviewed results, re-evaluated patient, d/w patient, d/w family ED course: Patient is an 88-year-old male with a history of A-fib on Eliquis presenting for evaluation of feeling lightheaded and a syncopal episode this morning after standing up from using the bathroom. Has had ongoing issues with nausea and vomiting for several months and is awaiting an upper endoscopy. EKG is reviewed and shows a sinus rhythm with no signs of acute ischemia. No chest pain or shortness of air. No symptoms to suggest ACS. He did hit his head so CT head and C-spine were obtained and reviewed without any noted injuries. Labs including CBC and chemistries were unrevealing. Patient is feeling better here with some IV fluids. Orthostatics reviewed. He is ambulatory to the bathroom without any difficulty. He is also feeling better after IV Zofran. He is on Multaq so do have some concerns about prescribing him any medications that may also interact with this medication. Encourage close follow-up with PCP and cardiology as well as reviewed concerning symptoms to return for. Departure - Departure Disposition: 01 Home, Self Care Clinical Impression: Syncope, Head injury Condition: Stable Instructions: ED Fainting Unkn Cause Comments: You were evaluated after a fainting spell and hitting your head. Your labs are reassuring. I do think you need close follow-up with your primary care provider and go go dancer. Please make sure you are staying hydrated and taking extra time when changing positions such as from a laying down to sitting and standing. Return to the ER with any worsening. Forms: PCP List Discharge Date/Time: 07/29/23 11:47
[2023-07-29] MEDS: SODIUM CHLORIDE 0.9% 1,000 ML IV STA (09:24)
[2023-07-29 11:50] VITALS: BP 109/71; O2SAT 99
== END 2023-07-29 11:47 | disposition home or self-care (01) ==
LOC: EDUNIT# → ED 07:32
DX: S09.90XA Unspecified injury of head, initial encounter (principal); R55 Syncope and collapse; W18.30XA Fall on same level, unspecified, initial encounter; R11.2 Nausea with vomiting, unspecified; I10 Essential (primary) hypertension; E78.00 Pure hypercholesterolemia, unspecified; I48.91 Unspecified atrial fibrillation; Z79.01 Long term (current) use of anticoagulants; Z79.899 Other long term (current) drug therapy
CPT/HCPCS: 36415; 80053; 83690; 83735; 85025; 93005; 96374; 99283

== ENCOUNTER 2023-08-02 08:00 | Outpatient (CLI) | payer MEDICARE ==
[2023-08-02 18:16] LABS: BILIRUBIN,URINE NEGATIVE (NEGATIVE); GLUCOSE, URINE (UA) NEGATIVE (NEGATIVE); KETONES,URINE (UA) NEGATIVE (NEGATIVE); LEUKOCYTE ESTERASE, URINE NEGATIVE (NEGATIVE); NITRITE,URINE NEGATIVE (NEGATIVE); OCCULT BLOOD,URINE TRACE-INTA (NEGATIVE); PROTEIN,URINE NEGATIVE (NEGATIVE); UROBILINOGEN,URINE 0.2 (NORMAL) E.U./dL (NORMAL)
[2023-08-02 18:34] LABS: BACTERIA,URINE None Seen /HPF (None Seen); CLARITY,URINE CLEAR (CLEAR); RBC,URINE 0-5 /HPF (0-5); SQUAMOUS EPITHELIAL CELL,UR FEW Squamous (<= Few); WBC,URINE 0-3 /HPF (0-3)
== END 2023-08-02 23:59 | disposition home or self-care (01) ==
LOC: LAB.WCP 08:00
PROVIDERS: ATTEND Nurse Practitioner
DX: R31.9 Hematuria, unspecified (principal)
CPT/HCPCS: 81001; 87086

== ENCOUNTER 2023-11-11 10:03 | Outpatient (CLI) | payer MEDICARE | END 2023-11-11 10:04 | disposition home or self-care (01) | LOC: LAB 10:03 | PROVIDERS: ATTEND Physician Assistant Medical | DX: Z13.0 Encounter for screening for diseases of the blood and blood-forming organs and certain disorders involving the immune mechanism (principal); Z83.2 Family history of diseases of the blood and blood-forming organs and certain disorders involving the immune mechanism | CPT/HCPCS: 36415; 81241 ==

== ENCOUNTER 2024-01-13 22:28 | Outpatient (CLI) | payer MEDICARE | END 2024-01-13 23:59 | disposition critical access hospital (66) | LOC: EMS 22:28 | DX: U07.1 COVID-19 (principal); R53.1 Weakness; I48.91 Unspecified atrial fibrillation; R45.89 Other symptoms and signs involving emotional state; Z63.6 Dependent relative needing care at home | CPT/HCPCS: A0425; A0429 ==

== ENCOUNTER 2024-01-13 22:36 | Emergency (ER) | payer MEDICARE ==
--- NOTE | 2024-01-13 22:37 | ED Physician Documentation ---
History of Present Illness - Stated complaint Stated Complaint: NOT FEELING WELL - History obtained from History obtained from: Patient, EMS - Additonal information Additional information: MAEA. HPI from patient, EMS. Patient's says he feels when he is in A-fib and he sensed that earlier today. He has a history of A-fib for which he takes Eliquis. He measured his pulse and blood pressure tonight and said they were "very high" (per patient). Patient says that he was instructed by his structural steel painter to call 911 should his pulse/heart rate exceeded 100 bpm. He says his pulse was "all over the place" (per patient) but as high as 101. He was also worried about high blood pressure readings tonight, which he says were as high as 170s SBP. Patient says he was in the [facility] emergency department last week, diagnosed with COVID.He says blood test, EKG, and chest x-ray were undertaken at that time. Patient says he took a COVID test at home earlier today with result negative for COVID. He denies fever, shortness of breath, any pain including chest pain. He did have nausea and vomiting earlier this evening but is currently denying N/V. PD PAST MEDICAL HISTORY - Past Medical History Past Medical History: Yes Cardiovascular: Atrial fibrillation - Present Medications Home Medications: Ambulatory Orders Medication Instructions Recorded Confirmed Dronedarone HCl [Multaq] 400 mg PO BID 12/10/12 04/17/15 Warfarin [Coumadin] 5 mg PO DAILY 12/10/12 03/08/17 Albuterol [Ventolin Hfa] 2 puffs INH Q6H PRN 04/14/15 04/17/15 Methylcellulose [Citrucel] 500 mg PO BID 04/14/15 04/17/15 Pitavastatin Calcium [Livalo] 1 mg PO DAILY 04/14/15 04/17/15 Warfarin [Coumadin] 2.5 mg PO DAILY 04/17/15 04/17/15 HYDROcod/ACETAM 5/325 [[place] 5/325] 1 - 2 ea PO Q6H PRN #15 tablet 03/08/17 Promethazine [Phenergan] 25 - 50 mg PO Q6H PRN #15 tab 03/08/17 Oxycodone HCl/Acetaminophen 1 each PO Q3HR PRN #20 tablet 03/12/17 [Percocet 5-325 mg Tablet] - Allergies Allergies/Adverse Reactions: Allergies Allergy/AdvReac Type Severity Reaction Status Date / Time iodine Allergy Unknown Verified 07/29/23 07:55 Penicillins Allergy Rash Verified 07/29/23 07:55 Zgutqou-SHQ-MlY Reductase Allergy Unknown Verified 07/29/23 07:55 Inhibitor [Yvdcxtm-Jro-Qkv Reductase Inhibitor] Sulfa (Sulfonamide Allergy Rash Verified 07/29/23 07:55 Antibiotics) PD ED PE NORMAL - Vitals Vital signs reviewed: Yes - General General: Alert and oriented X 3, No acute distress, Well developed/nourished - Neck Neck: Supple, no meningeal sign - Cardiac Cardiac: No murmur - Respiratory Respiratory: No respiratory distress, Clear bilaterally - Abdomen Abdomen: Soft, Non tender - Extremities Extremities: No edema Results - Vitals Vitals: Vital Signs - 24 hr 01/13/24 01/13/24 01/13/24 22:41 22:56 23:48 Temperature 36 C L 36.8 C Heart Rate 90 88 88 Respiratory 18 17 17 Rate Blood Pressure 125/94 H 125/84 H 132/67 H O2 Saturation 98 98 98 Oxygen O2 Source Room air - EKG (time done) No standard instances EKG releavant findings:: EKG personally interpreted by author of this note. Relevant findings are: Rate: Rate (enter#) (89) Rhythm: Atrial fibrillation [place]: LAD Intervals: Prolonged QT Ischemia: Q waves (III, aVF) - Labs Labs: Laboratory Tests 01/13/24 01/13/24 22:54 22:54 WBC 11.1 H RBC 5.09 Hgb 14.4 Hct 45.6 MCV 89.6 MCH 28.3 MCHC 31.6 L RDW 14.5 Plt Count 236 MPV 10.9 Neut # (Auto) 7.7 H Lymph # (Auto) 2.2 [place] # (Auto) 0.9 Eos # (Auto) 0.2 Baso # (Auto) 0.0 Absolute Nucleated RBC 0.00 Nucleated RBC % 0.0 Sodium 140 Potassium 4.0 Chloride 108 Carbon Dioxide 23 Anion Gap 9.0 BUN 24 H Creatinine 1.0 Estimated GFR (MDRD) 71 L Glucose 101 Calcium 9.4 Troponin I High Sens 27.6 H* PD Medical Decision Making - ED course Complexity details: reviewed results, re-evaluated patient, considered differential, d/w patient ED course: Patient's past medical history includes atrial fibrillation. It sounds like he is describing paroxysmal A-fib, as he tells me that he is sometimes found to not be in A-fib when he goes to the ED or sees his structural steel painter. He tells me he can sense when he is in A-fib and he felt that he went back into atrial fibrillation earlier tonight; he is unable to describe/elaborate on what symptom(s) he has that makes him feel that he is in A-fib. This sensation prompted him to check his blood pressure and his home BP cuff also measures heart rate. Per patient, he was instructed by his structural steel painter to call 911 anytime his pulse is above 100 bpm, and he called 911 tonight due to the heart rate reaching into the lower 100s. 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 He denies shortness of breath, chest pain. He is appropriately anticoagulated (Eliquis). Unremarkable CBC (minimal leukocytosis noted, WBC 11.1). Mildly elevated BUN with normal creatinine. He has a mildly abnormal high-sensitivity troponin (27.6) but he is not having symptoms to suggest angina/ACS and no findings on EKG to support ACS. He is in rate-controlled atrial fibrillation on scout leaser throughout ED stay. Given his report of testing in [facility] ED last week including unremarkable CXR (and given no pulmonary c/o nor abnormal lung sounds on exam), no imaging is indicated at this time. Results discussed with patient, return precautions reviewed. He is asymptomatic on reevaluation when we discussed these results. I instructed him to contact his structural steel painter to arrange for the next available appointment but also to seek clarification regarding calling 911 for heart rate above 100. Departure - Departure Disposition: 01 Home, Self Care Clinical Impression: Atrial fibrillation Qualifiers: Atrial fibrillation type: paroxysmal Qualified Code(s): I48.0 - Paroxysmal atrial fibrillation Condition: Good Instructions: ED Afib Comments: There were no concerning findings on tonight's blood tests nor on the EKG. Although you are currently in atrial fibrillation, you are also on appropriate medication (specifically the blood thinning medication Eliquis). Contact your structural steel painter when the office next opens to arrange for the next available appointment for follow-up/reevaluation. Forms: PCP List Discharge Date/Time: 01/14/24 00:07
[2024-01-13 22:50] VITALS: O2SAT 98
[2024-01-13 22:58] LABS: BASOPHILS % (AUTO) 0.4 %; EOSINOPHILS # (AUTO) 0.2 10^3/uL (0.0-0.7); HCT - HEMATOCRIT 45.6 % (42.0-52.0); HGB - HEMOGLOBIN 14.4 g/dL (14.0-18.0); LYMPHOCYTES # (AUTO) 2.2 10^3/uL (1.5-3.5); LYMPHOCYTES % (AUTO) 19.4 %; MEAN CORPUSCULAR HEMOGLOBIN 28.3 pg (27.0-31.0); MEAN CORPUSCULAR HGB CONC 31.6 g/dL (32.0-36.0); MEAN CORPUSCULAR VOLUME 89.6 fL (80.0-94.0); MEAN PLATELET VOLUME 10.9 fL (7.4-11.4); MONOCYTES # (AUTO) 0.9 10^3/uL (0.0-1.0); MONOCYTES % (AUTO) 8.4 %; NEUTROPHILS # (AUTO) 7.7 10^3/uL (1.5-6.6); NEUTROPHILS % (AUTO) 68.8 %; PLT - PLATELET COUNT 236 10^3/uL (130-450); RED BLOOD COUNT 5.09 10^6/uL (4.70-6.10); RED CELL DISTRIBUTION WIDTH 14.5 % (12.0-15.0); WHITE BLOOD COUNT 11.1 x10^3/uL (4.8-10.8)
[2024-01-13 23:20] LABS: TROPONIN I HIGH SENSITIVITY 27.6 ng/L (2.3-19.7)
[2024-01-13 23:33] LABS: CALCIUM 9.4 mg/dL (8.5-10.3)
[2024-01-13 23:56] VITALS: BP 132/67
== END 2024-01-14 00:07 | disposition home or self-care (01) ==
LOC: ED 22:36
DX: I48.0 Paroxysmal atrial fibrillation (principal); Z79.01 Long term (current) use of anticoagulants
CPT/HCPCS: 36415; 80048; 84484; 85025; 93005; 99283; 99284